=== PATIENT | female | born 1940 | race African-American/Black ===

== ENCOUNTER 2017-12-04 11:10 | Inpatient (IN) ==
[2017-12-04 13:00] LABS: Eosinophils # 0.1 10*3/uL (0.0-0.87); Eosinophils % 0.6 % (0.00-10.9); Hematocrit 32.1 VOL% (35.7-47.0); Hemoglobin 10.8 GM/DL (12.0-16.0); Immature Granulocytes % 0.6 %; Immature Granulocytes Absolute 0.07 #; Lymphocytes # 0.8 10*3/uL (1.4-4.0); Lymphocytes % 6.9 % (21.3-54.2); Mean Corpuscular HGB Conc 33.6 GM/DL (32-36); Mean Corpuscular Hemoglobin 29 PG (27-34); Mean Corpuscular Volume 84.7 FL (87-102); Monocytes # 0.6 10*3/uL (0.11-0.8); Monocytes % 5.9 % (1.7-12.7); Neutrophils # 9.4 10*3/uL (1.4-7.4); Platelet Count 301 T/CUMM (130-400); Red Blood Count 3.79 MC/CUMM (3.8-5.5); Red Cell Distribution Width 15.7 % (9.3-17.3); White Blood Count 10.9 T/CUMM (4-12)
[2017-12-04 13:18] LABS: Alanine Aminotransferase 17 U/L (13-56); Albumin 3.3 G/DL (3.4-5.0); Alkaline Phosphatase 57 U/L (45-117); Aspartate Amino Transferase 11 U/L (0-37); Bilirubin,Total < 0.39 MG/DL (0.2-1.0); Blood Urea Nitrogen 35 MG/DL (7-18); Calcium 9.1 MG/DL (8.5-10.1); Glucose 126 MG/DL (74-106); Osmolality,Calculated 284.7 MOS/KG (273-304); Potassium 4.6 MMOL/L (3.5-5.1); Sodium 138 MMOL/L (136-145); Total Protein 7.5 G/DL (6.4-8.3)
[2017-12-04 13:31] LABS: Apearance,Urine Slightly Hazy (Clear); Bacteria,Urine Many /HPF (Few); Bilirubin,Urine Negative (Negative); Blood, Urine Negative (Negative); Glucose,Urine (UA) Negative (Negative); Hyaline Casts,Urine 1 /LPF (0-3); Ketones,Urine Negative (Negative); Mucus,Urine Occasional /LPF (Occasional); Nitrite,Urine Positive (Negative); Protein,Urine Negative; Squamous Epithelial Cell,Urine Occasional /HPF (0-10); Urine Color Yellow (Yellow); Urine Specific Gravity 1.014 (1.001-1.035); Urine Urobilinogen < 2.0 EU/DL (0.2-1.0); WBC,Urine 3 /HPF (0-6)
[2017-12-04] MEDS ORDERED: ONDANSETRON 4 MG/2 ML VIAL IV PRN (15:01)
[2017-12-04] MEDS ORDERED: ACETAMINOPHEN 325 MG TABLET PO PRN (15:01)
[2017-12-04] MEDS ORDERED: GLUCAGON 1 MG VIAL IM PRN (15:34)
[2017-12-04] MEDS ORDERED: DEXTROSE 50% 25 GM/50 ML VIAL IV PRN (15:34)
[2017-12-04] MEDS ORDERED: SODIUM CHLORIDE 0.9% 1,000 ML IV SCH (16:00)
[2017-12-04] MEDS ORDERED: ALBUTEROL/IPRATROPIUM 3 ML NEB RESP TX PRN (16:01)
[2017-12-04] MEDS: cefTRIAXone 1,000 MG in SYRINGE 1 EACH IV SCH (20:37)
[2017-12-04] MEDS: INSULIN LISPRO 100 UNIT/ML SUBCUT SCH ×2 (20:37→21:29)
[2017-12-04] MEDS: hydrOXYzine HCL 25 MG TABLET PO SCH ×2 (20:38→21:31)
[2017-12-04] MEDS: METOPROLOL SUCCINATE XL 50 MG TABLET PO SCH (21:28)
[2017-12-04] MEDS: ALLOPURINOL 100 MG TABLET PO SCH (21:28)
[2017-12-04] MEDS: DABIGATRAN 150 MG CAPSULE PO SCH (21:28)
[2017-12-04] MEDS: SPIRONOLACTONE 25 MG TABLET PO SCH (21:28)
[2017-12-05 05:57] LABS: Basophils % 0.2 % (0.0-0.8); Eosinophils # 0.1 10*3/uL (0.0-0.87); Eosinophils % 1.3 % (0.00-10.9); Hemoglobin 9.9 GM/DL (12.0-16.0); Immature Granulocytes % 0.7 %; Immature Granulocytes Absolute 0.07 #; Lymphocytes # 2.1 10*3/uL (1.4-4.0); Lymphocytes % 20.4 % (21.3-54.2); Mean Corpuscular HGB Conc 31.9 GM/DL (32-36); Mean Corpuscular Hemoglobin 28 PG (27-34); Mean Corpuscular Volume 86.4 FL (87-102); Mean Platelet Volume 9.7 FL (9.6-12.0); Monocytes # 1.1 10*3/uL (0.11-0.8); Monocytes % 10.6 % (1.7-12.7); Neutrophils # 6.8 10*3/uL (1.4-7.4); Neutrophils % 66.8 % (38.7-73.9); Platelet Count 279 T/CUMM (130-400); Red Blood Count 3.59 MC/CUMM (3.8-5.5); Red Cell Distribution Width 15.8 % (9.3-17.3); White Blood Count 10.2 T/CUMM (4-12)
[2017-12-05 06:22] LABS: Calcium 8.7 MG/DL (8.5-10.1); Osmolality,Calculated 287.1 MOS/KG (273-304); Potassium 4.4 MMOL/L (3.5-5.1); Risk Ratio 2.03; VLDL CHOLESTEROL 12.6 MG/DL
[2017-12-05] MEDS: INSULIN LISPRO 100 UNIT/ML SUBCUT SCH ×4 (08:54→20:51)
[2017-12-05] MEDS: PANTOPRAZOLE 40 MG TABLET PO SCH (08:55)
[2017-12-05] MEDS: SPIRONOLACTONE 25 MG TABLET PO SCH ×2 (08:55→20:51)
[2017-12-05] MEDS: METOPROLOL SUCCINATE XL 100 MG TABLET PO SCH (08:55)
[2017-12-05] MEDS: DABIGATRAN 150 MG CAPSULE PO SCH (08:55)
[2017-12-05] MEDS: FUROSEMIDE 40 MG TABLET PO SCH (08:55)
[2017-12-05] MEDS: hydrOXYzine HCL 25 MG TABLET PO SCH ×4 (08:55→20:50)
[2017-12-05] MEDS: MULTIVITAMIN (CENTRUM) TABLET PO SCH (08:55)
[2017-12-05] MEDS: predniSONE 10 MG TABLET PO SCH (08:55)
[2017-12-05] MEDS: DILTIAZEM CD 240 MG CAPSULE PO SCH (08:55)
[2017-12-05] MEDS: ALLOPURINOL 100 MG TABLET PO SCH ×2 (08:55→20:50)
[2017-12-05] MEDS: CLINDAMYCIN INJ 300 MG in PREMIX 1 EACH IV SCH ×2 (14:54→20:51)
[2017-12-05] MEDS: cefTRIAXone 1,000 MG in SYRINGE 1 EACH IV SCH (16:36)
[2017-12-05] MEDS: METOPROLOL SUCCINATE XL 50 MG TABLET PO SCH (20:59)
[2017-12-06] MEDS: CLINDAMYCIN INJ 300 MG in PREMIX 1 EACH IV SCH ×4 (00:46→21:09)
[2017-12-06 06:24] LABS: Basophils % 0.2 % (0.0-0.8); Eosinophils # 0.1 10*3/uL (0.0-0.87); Eosinophils % 1.1 % (0.00-10.9); Hematocrit 29.6 VOL% (35.7-47.0); Hemoglobin 9.7 GM/DL (12.0-16.0); Immature Granulocytes Absolute 0.09 #; Lymphocytes % 11.4 % (21.3-54.2); Mean Corpuscular HGB Conc 32.8 GM/DL (32-36); Mean Corpuscular Hemoglobin 27 PG (27-34); Mean Corpuscular Volume 83.6 FL (87-102); Mean Platelet Volume 10.7 FL (9.6-12.0); Monocytes # 1.1 10*3/uL (0.11-0.8); NRBC # 0.02 10*3/uL; Neutrophils # 6.5 10*3/uL (1.4-7.4); Neutrophils % 74.3 % (38.7-73.9); Platelet Count 288 T/CUMM (130-400); Red Blood Count 3.54 MC/CUMM (3.8-5.5); Red Cell Distribution Width 15.6 % (9.3-17.3); White Blood Count 8.8 T/CUMM (4-12)
[2017-12-06 06:34] LABS: Calcium 8.6 MG/DL (8.5-10.1)
[2017-12-06 06:35] LABS: Osmolality,Calculated 287.1 MOS/KG (273-304); Potassium 4.4 MMOL/L (3.5-5.1)
[2017-12-06] MEDS: INSULIN LISPRO 100 UNIT/ML SUBCUT SCH ×4 (08:15→21:13)
[2017-12-06] MEDS: METOPROLOL SUCCINATE XL 100 MG TABLET PO SCH (09:02)
[2017-12-06] MEDS: predniSONE 10 MG TABLET PO SCH (09:02)
[2017-12-06] MEDS: FUROSEMIDE 40 MG TABLET PO SCH (09:02)
[2017-12-06] MEDS: SPIRONOLACTONE 25 MG TABLET PO SCH ×2 (09:02→21:10)
[2017-12-06] MEDS: PANTOPRAZOLE 40 MG TABLET PO SCH (09:02)
[2017-12-06] MEDS: MULTIVITAMIN (CENTRUM) TABLET PO SCH (09:02)
[2017-12-06] MEDS: DILTIAZEM CD 240 MG CAPSULE PO SCH (09:02)
[2017-12-06] MEDS: ALLOPURINOL 100 MG TABLET PO SCH ×2 (09:02→21:10)
[2017-12-06] MEDS: hydrOXYzine HCL 25 MG TABLET PO SCH ×4 (09:02→21:10)
[2017-12-06] MEDS: ALBUTEROL/IPRATROPIUM 3 ML NEB RESP TX SCH ×2 (13:45→19:03)
[2017-12-06] MEDS: cefTRIAXone 1,000 MG in SYRINGE 1 EACH IV SCH (17:21)
[2017-12-06] MEDS: METOPROLOL SUCCINATE XL 50 MG TABLET PO SCH (21:10)
[2017-12-07] MEDS: ALBUTEROL/IPRATROPIUM 3 ML NEB RESP TX SCH ×4 (00:18→19:33)
[2017-12-07] MEDS: CLINDAMYCIN INJ 300 MG in PREMIX 1 EACH IV SCH ×4 (02:31→18:38)
[2017-12-07] MEDS: INSULIN LISPRO 100 UNIT/ML SUBCUT SCH ×3 (08:16→16:58)
[2017-12-07] MEDS: ALLOPURINOL 100 MG TABLET PO SCH ×2 (09:34→21:00)
[2017-12-07] MEDS: METOPROLOL SUCCINATE XL 100 MG TABLET PO SCH (09:34)
[2017-12-07] MEDS: SPIRONOLACTONE 25 MG TABLET PO SCH ×2 (09:36→21:00)
[2017-12-07] MEDS: PANTOPRAZOLE 40 MG TABLET PO SCH (09:37)
[2017-12-07] MEDS: MULTIVITAMIN (CENTRUM) TABLET PO SCH (09:38)
[2017-12-07] MEDS: predniSONE 10 MG TABLET PO SCH (09:41)
[2017-12-07] MEDS: DILTIAZEM CD 240 MG CAPSULE PO SCH (10:28)
[2017-12-07] MEDS: hydrOXYzine HCL 25 MG TABLET PO SCH ×4 (10:29→21:00)
[2017-12-07] MEDS: FUROSEMIDE 40 MG TABLET PO SCH (10:29)
[2017-12-07] MEDS: cefTRIAXone 1,000 MG in SYRINGE 1 EACH IV SCH (16:56)
[2017-12-07 18:05] LABS: TB2 Ag Minus Result 0 IU/mL
[2017-12-07] MEDS: METOPROLOL SUCCINATE XL 50 MG TABLET PO SCH (21:00)
[2017-12-08] MEDS: INSULIN LISPRO 100 UNIT/ML SUBCUT SCH ×5 (00:23→20:08)
[2017-12-08] MEDS: CLINDAMYCIN INJ 300 MG in PREMIX 1 EACH IV SCH ×4 (00:29→19:51)
[2017-12-08] MEDS: ALBUTEROL/IPRATROPIUM 3 ML NEB RESP TX SCH ×4 (00:48→20:02)
[2017-12-08 05:25] LABS: Basophils % 0.2 % (0.0-0.8); Eosinophils # 0.2 10*3/uL (0.0-0.87); Eosinophils % 2.1 % (0.00-10.9); Hematocrit 27.9 VOL% (35.7-47.0); Immature Granulocytes % 1.2 %; Immature Granulocytes Absolute 0.11 #; Lymphocytes # 1.7 10*3/uL (1.4-4.0); Lymphocytes % 18.5 % (21.3-54.2); Mean Corpuscular HGB Conc 32.3 GM/DL (32-36); Mean Corpuscular Hemoglobin 28 PG (27-34); Mean Corpuscular Volume 86.1 FL (87-102); Mean Platelet Volume 10.5 FL (9.6-12.0); NRBC # 0.02 10*3/uL; Platelet Count 260 T/CUMM (130-400); Red Blood Count 3.24 MC/CUMM (3.8-5.5); Red Cell Distribution Width 15.6 % (9.3-17.3)
[2017-12-08 05:57] LABS: Albumin 2.4 G/DL (3.4-5.0); Bilirubin,Total 0.5 MG/DL (0.2-1.0); Calcium 8.5 MG/DL (8.5-10.1); Osmolality,Calculated 287.1 MOS/KG (273-304); Potassium 4.8 MMOL/L (3.5-5.1); Total Protein 6.1 G/DL (6.4-8.3)
[2017-12-08] MEDS: DILTIAZEM CD 240 MG CAPSULE PO SCH (09:32)
[2017-12-08] MEDS: predniSONE 10 MG TABLET PO SCH (09:32)
[2017-12-08] MEDS: METOPROLOL SUCCINATE XL 100 MG TABLET PO SCH (09:33)
[2017-12-08] MEDS: FUROSEMIDE 40 MG TABLET PO SCH (09:35)
[2017-12-08] MEDS: SPIRONOLACTONE 25 MG TABLET PO SCH ×2 (09:35→20:12)
[2017-12-08] MEDS: MULTIVITAMIN (CENTRUM) TABLET PO SCH (09:35)
[2017-12-08] MEDS: hydrOXYzine HCL 25 MG TABLET PO SCH ×4 (09:36→20:12)
[2017-12-08] MEDS: ALLOPURINOL 100 MG TABLET PO SCH ×2 (09:36→20:12)
[2017-12-08] MEDS: PANTOPRAZOLE 40 MG TABLET PO SCH (09:37)
[2017-12-08] MEDS: cefTRIAXone 1,000 MG in SYRINGE 1 EACH IV SCH (17:33)
[2017-12-08] MEDS: METOPROLOL SUCCINATE XL 50 MG TABLET PO SCH (20:12)
[2017-12-09] MEDS: ALBUTEROL/IPRATROPIUM 3 ML NEB RESP TX SCH ×3 (01:00→12:01)
[2017-12-09] MEDS: CLINDAMYCIN INJ 300 MG in PREMIX 1 EACH IV SCH ×4 (06:03→20:15)
[2017-12-09] MEDS: INSULIN LISPRO 100 UNIT/ML SUBCUT SCH ×4 (08:13→20:14)
[2017-12-09] MEDS: PANTOPRAZOLE 40 MG TABLET PO SCH (09:57)
[2017-12-09] MEDS: hydrOXYzine HCL 25 MG TABLET PO SCH ×4 (09:58→20:15)
[2017-12-09] MEDS: METOPROLOL SUCCINATE XL 100 MG TABLET PO SCH (09:58)
[2017-12-09] MEDS: DILTIAZEM CD 240 MG CAPSULE PO SCH (09:58)
[2017-12-09] MEDS: MULTIVITAMIN (CENTRUM) TABLET PO SCH (09:58)
[2017-12-09] MEDS: SPIRONOLACTONE 25 MG TABLET PO SCH ×2 (09:58→20:15)
[2017-12-09] MEDS: predniSONE 10 MG TABLET PO SCH (09:58)
[2017-12-09] MEDS: FUROSEMIDE 40 MG TABLET PO SCH (09:59)
[2017-12-09] MEDS: ALLOPURINOL 100 MG TABLET PO SCH ×2 (09:59→20:15)
[2017-12-09] MEDS: cefTRIAXone 1,000 MG in SYRINGE 1 EACH IV SCH (18:04)
[2017-12-09] MEDS: METOPROLOL SUCCINATE XL 50 MG TABLET PO SCH (20:15)
[2017-12-10] MEDS: CLINDAMYCIN INJ 300 MG in PREMIX 1 EACH IV SCH ×4 (00:23→18:43)
[2017-12-10] MEDS: ALBUTEROL/IPRATROPIUM 3 ML NEB RESP TX SCH ×5 (00:45→20:12)
[2017-12-10] MEDS: DILTIAZEM CD 240 MG CAPSULE PO SCH (10:13)
[2017-12-10] MEDS: SPIRONOLACTONE 25 MG TABLET PO SCH ×2 (10:14→20:28)
[2017-12-10] MEDS: MULTIVITAMIN (CENTRUM) TABLET PO SCH (10:15)
[2017-12-10] MEDS: predniSONE 10 MG TABLET PO SCH (10:15)
[2017-12-10] MEDS: FUROSEMIDE 40 MG TABLET PO SCH (10:15)
[2017-12-10] MEDS: hydrOXYzine HCL 25 MG TABLET PO SCH ×4 (10:15→20:28)
[2017-12-10] MEDS: ALLOPURINOL 100 MG TABLET PO SCH ×2 (10:15→20:28)
[2017-12-10] MEDS: PANTOPRAZOLE 40 MG TABLET PO SCH (10:16)
[2017-12-10] MEDS: INSULIN LISPRO 100 UNIT/ML SUBCUT SCH ×4 (10:16→20:21)
[2017-12-10] MEDS: METOPROLOL SUCCINATE XL 100 MG TABLET PO SCH (10:23)
[2017-12-10] MEDS: cefTRIAXone 1,000 MG in SYRINGE 1 EACH IV SCH (17:07)
[2017-12-10] MEDS: METOPROLOL SUCCINATE XL 50 MG TABLET PO SCH (20:28)
[2017-12-11] MEDS: CLINDAMYCIN INJ 300 MG in PREMIX 1 EACH IV SCH ×4 (00:07→18:55)
[2017-12-11] MEDS: ALBUTEROL/IPRATROPIUM 3 ML NEB RESP TX SCH ×4 (00:43→19:00)
[2017-12-11 06:01] LABS: Basophils % 0.3 % (0.0-0.8); Eosinophils # 0.2 10*3/uL (0.0-0.87); Eosinophils % 1.6 % (0.00-10.9); Hematocrit 30.7 VOL% (35.7-47.0); Hemoglobin 10.5 GM/DL (12.0-16.0); Immature Granulocytes % 1.4 %; Immature Granulocytes Absolute 0.15 #; Lymphocytes # 2.1 10*3/uL (1.4-4.0); Lymphocytes % 20.1 % (21.3-54.2); Mean Corpuscular HGB Conc 34.2 GM/DL (32-36); Mean Corpuscular Hemoglobin 28 PG (27-34); Mean Corpuscular Volume 82.3 FL (87-102); Mean Platelet Volume 10.6 FL (9.6-12.0); Monocytes # 1.1 10*3/uL (0.11-0.8); Monocytes % 10.2 % (1.7-12.7); NRBC # 0.04 10*3/uL; Neutrophils % 66.4 % (38.7-73.9); Platelet Count 286 T/CUMM (130-400); Red Blood Count 3.73 MC/CUMM (3.8-5.5); Red Cell Distribution Width 15.9 % (9.3-17.3); White Blood Count 10.6 T/CUMM (4-12)
[2017-12-11 06:15] LABS: PT Patient Result 10.7 SECS
[2017-12-11 06:16] LABS: Albumin 2.8 G/DL (3.4-5.0); Bilirubin,Total 0.5 MG/DL (0.2-1.0); Calcium 8.7 MG/DL (8.5-10.1); Osmolality,Calculated 282.5 MOS/KG (273-304); Potassium 4.6 MMOL/L (3.5-5.1); Total Protein 6.8 G/DL (6.4-8.3)
[2017-12-11] MEDS ORDERED: BENZONATATE 100 MG CAPSULE PO ONE (08:00)
[2017-12-11] MEDS ORDERED: diphenhydrAMINE 50 MG/1 ML VIAL IM ONE (08:00)
[2017-12-11] MEDS ORDERED: MEPERIDINE 50 MG/1 ML VIAL IM ONE (08:00)
[2017-12-11] MEDS ORDERED: LIDOCAINE 2% VISCOUS 100 ML BOTTLE SWISH/SPIT ONE (08:30)
[2017-12-11] MEDS ORDERED: LIDOCAINE 2% 20 ML VIAL RESP TX ONE (08:30)
[2017-12-11] MEDS ORDERED: LIDOCAINE 1% 20 ML VIAL MISC INJ ONE (08:30)
[2017-12-11] MEDS: INSULIN LISPRO 100 UNIT/ML SUBCUT SCH ×4 (08:32→21:45)
[2017-12-11] MEDS ORDERED: EPINEPHrine 1 MG/ML VIAL ET ONE (09:14)
[2017-12-11] MEDS ORDERED: EPINEPHrine 1 MG/ML VIAL ONE (09:54)
[2017-12-11] MEDS: hydrOXYzine HCL 25 MG TABLET PO SCH ×4 (10:29→20:31)
[2017-12-11] MEDS: PANTOPRAZOLE 40 MG TABLET PO SCH (10:30)
[2017-12-11] MEDS: METOPROLOL SUCCINATE XL 100 MG TABLET PO SCH (11:29)
[2017-12-11] MEDS: SPIRONOLACTONE 25 MG TABLET PO SCH ×2 (11:30→20:31)
[2017-12-11] MEDS: DILTIAZEM CD 240 MG CAPSULE PO SCH (11:30)
[2017-12-11] MEDS: predniSONE 10 MG TABLET PO SCH (11:30)
[2017-12-11] MEDS: FUROSEMIDE 40 MG TABLET PO SCH (11:30)
[2017-12-11] MEDS: ALLOPURINOL 100 MG TABLET PO SCH ×2 (11:30→20:32)
[2017-12-11] MEDS: MULTIVITAMIN (CENTRUM) TABLET PO SCH (11:30)
[2017-12-11] MEDS: cefTRIAXone 1,000 MG in SYRINGE 1 EACH IV SCH (16:40)
[2017-12-11] MEDS: METOPROLOL SUCCINATE XL 50 MG TABLET PO SCH (20:32)
[2017-12-12] MEDS: ALBUTEROL/IPRATROPIUM 3 ML NEB RESP TX SCH ×4 (00:30→20:03)
[2017-12-12] MEDS: CLINDAMYCIN INJ 300 MG in PREMIX 1 EACH IV SCH ×4 (01:18→18:05)
[2017-12-12] MEDS: INSULIN LISPRO 100 UNIT/ML SUBCUT SCH ×4 (07:32→21:47)
[2017-12-12] MEDS: PANTOPRAZOLE 40 MG TABLET PO SCH (09:12)
[2017-12-12] MEDS: predniSONE 10 MG TABLET PO SCH (09:12)
[2017-12-12] MEDS: DILTIAZEM CD 240 MG CAPSULE PO SCH (09:12)
[2017-12-12] MEDS: METOPROLOL SUCCINATE XL 100 MG TABLET PO SCH (09:12)
[2017-12-12] MEDS: ALLOPURINOL 100 MG TABLET PO SCH ×2 (09:12→21:46)
[2017-12-12] MEDS: MULTIVITAMIN (CENTRUM) TABLET PO SCH (09:12)
[2017-12-12] MEDS: FUROSEMIDE 40 MG TABLET PO SCH (09:12)
[2017-12-12] MEDS: SPIRONOLACTONE 25 MG TABLET PO SCH ×2 (09:13→21:46)
[2017-12-12] MEDS: hydrOXYzine HCL 25 MG TABLET PO SCH ×4 (09:13→21:46)
[2017-12-12] MEDS: cefTRIAXone 1,000 MG in SYRINGE 1 EACH IV SCH (15:55)
[2017-12-12 16:55] LABS: Apearance,Urine CLEAR (Clear); Bilirubin,Urine Negative (Negative); Blood, Urine Negative (Negative); Glucose,Urine (UA) Negative (Negative); Hyaline Casts,Urine 1 /LPF (0-3); Ketones,Urine Negative (Negative); Mucus,Urine Occasional /LPF (Occasional); Nitrite,Urine Negative (Negative); Protein,Urine Negative; Squamous Epithelial Cell,Urine Occasional /HPF (0-10); Urine Color Yellow (Yellow); Urine Specific Gravity 1.008 (1.001-1.035); Urine Urobilinogen < 2.0 EU/DL (0.2-1.0); WBC,Urine <1 /HPF (0-6)
[2017-12-12] MEDS: DABIGATRAN 150 MG CAPSULE PO SCH (21:45)
[2017-12-12] MEDS: METOPROLOL SUCCINATE XL 50 MG TABLET PO SCH (21:46)
[2017-12-13] MEDS: CLINDAMYCIN INJ 300 MG in PREMIX 1 EACH IV SCH ×2 (00:59→06:09)
[2017-12-13] MEDS: ALBUTEROL/IPRATROPIUM 3 ML NEB RESP TX SCH ×2 (01:31→07:15)
[2017-12-13] MEDS: INSULIN LISPRO 100 UNIT/ML SUBCUT SCH ×2 (08:20→11:30)
[2017-12-13] MEDS: PANTOPRAZOLE 40 MG TABLET PO SCH (09:14)
[2017-12-13] MEDS: ALLOPURINOL 100 MG TABLET PO SCH (09:14)
[2017-12-13] MEDS: FUROSEMIDE 40 MG TABLET PO SCH (09:14)
[2017-12-13] MEDS: METOPROLOL SUCCINATE XL 100 MG TABLET PO SCH (09:14)
[2017-12-13] MEDS: predniSONE 10 MG TABLET PO SCH (09:14)
[2017-12-13] MEDS: MULTIVITAMIN (CENTRUM) TABLET PO SCH (09:14)
[2017-12-13] MEDS: DILTIAZEM CD 240 MG CAPSULE PO SCH (09:15)
[2017-12-13] MEDS: SPIRONOLACTONE 25 MG TABLET PO SCH (09:16)
[2017-12-13] MEDS: hydrOXYzine HCL 25 MG TABLET PO SCH ×2 (09:16→12:53)
[2017-12-13] MEDS: DABIGATRAN 150 MG CAPSULE PO SCH (09:25)
[2017-12-13 12:34] VITALS: BP 119/81
== END 2017-12-13 14:50 | disposition home or self-care (01) | DRG 167 ==
LOC: N.ED 11:10 → SUATTDRO 15:00 → N.EDINP 15:00 → N.4E 18:31
PROVIDERS: ADMIT Internal Medicine; ATTEND Internal Medicine
PROC: BRONCHB (2017-12-11 09:05)

== ENCOUNTER 2019-01-26 11:45 | Inpatient (IN) ==
[2019-01-26] MEDS ORDERED: LACTATED RINGERS 500 ML IV ONE (12:59)
[2019-01-26] MEDS ORDERED: LACTATED RINGERS 1,000 ML IV SCH (13:00)
[2019-01-26 13:21] LABS: Basophils # 0.1 10*3/uL (0.0-0.2); Basophils % 0.2 % (0.0-0.8); Eosinophils % 0.1 % (0.00-10.9); Hematocrit 28.4 VOL% (35.7-47.0); Hemoglobin 9.4 GM/DL (12.0-16.0); Immature Granulocytes % 1.8 %; Immature Granulocytes Absolute 0.57 #; Lymphocytes # 0.7 10*3/uL (1.4-4.0); Lymphocytes % 2.2 % (21.3-54.2); Mean Corpuscular HGB Conc 33.1 GM/DL (32-36); Mean Platelet Volume 9.2 FL (9.6-12.0); NRBC # 0.11 10*3/uL; Neutrophils % 91.7 % (38.7-73.9); Platelet Count 275 T/CUMM (130-400); Red Blood Count 3.38 MC/CUMM (3.8-5.5); Red Cell Distribution Width 15.6 % (9.3-17.3); White Blood Count 31.4 T/CUMM (4-12)
[2019-01-26 13:32] LABS: Apearance,Urine Slightly Hazy (Clear); Bacteria,Urine Occasional /HPF (Few); Blood, Urine Negative (Negative); Glucose,Urine (UA) Negative (Negative); Hyaline Casts,Urine 5 /LPF (0-3); Ketones,Urine Negative (Negative); Nitrite,Urine Negative (Negative); Protein,Urine Negative; Squamous Epithelial Cell,Urine Occasional /HPF (0-10); Urine Color Yellow (Yellow); Urine Specific Gravity 1.012 (1.001-1.035); WBC,Urine 1 /HPF (0-6)
[2019-01-26 13:33] LABS: Bilirubin,Urine Small mg/dL (Negative)
[2019-01-26 13:41] LABS: Albumin 2.1 G/DL (3.4-5.0); Bilirubin,Total 0.8 MG/DL (0.2-1.0); Calcium 9.4 MG/DL (8.5-10.1)
[2019-01-26] MEDS ORDERED: SODIUM POLYSTYRENE SULFATE 15 GM/60 ML BOTTLE PO STA (13:51)
[2019-01-26] MEDS ORDERED: DEXTROSE 50% 25 GM/50 ML SYRINGE IV ONE (13:51)
[2019-01-26] MEDS ORDERED: CALCIUM GLUCONATE 2,000 MG in SODIUM CHLORIDE 0.9% 100 ML IV ONE (13:53)
[2019-01-26] MEDS ORDERED: INSULIN REGULAR 100 UNIT/ML ONE (13:53)
[2019-01-26] MEDS ORDERED: CALCIUM GLUCONATE 1,000 MG/10 ML VIAL IV ONE (13:55)
[2019-01-26] MEDS ORDERED: INSULIN REGULAR 100 UNIT/ML IV STA (13:59)
[2019-01-26] MEDS ORDERED: DEXTROSE 50% 25 GM/50 ML VIAL IV STA (13:59)
[2019-01-26 14:16] LABS: Lymphocytes 3 % (20-55); Segmented Neutrophils 92 % (50-85); Total Cells Counted 100
[2019-01-26 14:17] LABS: Microcytosis Slight
[2019-01-26 14:18] LABS: Elliptocytes Few
[2019-01-26 14:19] LABS: Acanthocytes Few
[2019-01-26 14:20] LABS: Platelet Estimate Adequate
[2019-01-26] MEDS ORDERED: predniSONE 5 MG TABLET PO SCH (15:10)
[2019-01-26] MEDS ORDERED: ONDANSETRON 4 MG/2 ML VIAL IV PRN (15:10)
[2019-01-26] MEDS ORDERED: ACETAMINOPHEN 325 MG TABLET PO PRN (15:10)
[2019-01-26] MEDS ORDERED: GLUCAGON 1 MG VIAL IM PRN (15:10)
[2019-01-26] MEDS: predniSONE 20 MG TABLET PO SCH (15:51)
[2019-01-26] MEDS: PANTOPRAZOLE 40 MG TABLET PO SCH (15:51)
[2019-01-26] MEDS: INSULIN REGULAR 100 UNIT/ML SUBCUT SCH ×2 (15:53→20:59)
[2019-01-26] MEDS: PIPERACILLIN/TAZOBACTAM 3,375 MG in SODIUM CHLORIDE 0.9% 100 ML IV SCH (16:42)
[2019-01-26] MEDS: SODIUM BICARB INJ 100 MEQ in DEXTROSE 5% 1,000 ML IV SCH (16:59)
[2019-01-26] MEDS ORDERED: prednisoLONE ACETATE 1% OPH SUSP 5 ML BOTTLE BOTH EYES PRN (17:00)
[2019-01-26 17:11] LABS: Apearance,Urine Slightly Hazy (Clear); Bacteria,Urine Occasional /HPF (Few); Bilirubin,Urine Negative (Negative); Blood, Urine Negative (Negative); Glucose,Urine (UA) Negative (Negative); Hyaline Casts,Urine 1 /LPF (0-3); Ketones,Urine Negative (Negative); Mucus,Urine Occasional /LPF (Occasional); Nitrite,Urine Negative (Negative); Protein,Urine Negative; RBC,Urine <1 /HPF (0-4); Squamous Epithelial Cell,Urine Occasional /HPF (0-10); Urine Color Yellow (Yellow); Urine Specific Gravity 1.011 (1.001-1.035); WBC,Urine 1 /HPF (0-6)
[2019-01-26 17:33] LABS: Protein/Creatinine Ratio,Urine 0.7 RATIO
[2019-01-26 18:21] LABS: Albumin 2.3 G/DL (3.4-5.0); Calcium 9.5 MG/DL (8.5-10.1)
[2019-01-26] MEDS ORDERED: INSULIN REGULAR 100 UNIT/ML IV ONE (18:39)
[2019-01-26] MEDS ORDERED: SODIUM POLYSTYRENE SULFATE 15 GM/60 ML BOTTLE PO ONE (18:43)
[2019-01-26] MEDS ORDERED: DEXTROSE 10% 250 ML IV SCH (19:00)
[2019-01-26] MEDS: ALBUTEROL/IPRATROPIUM 3 ML NEB RESP TX SCH (20:00)
[2019-01-26] MEDS ORDERED: METOPROLOL TARTRATE 25 MG TABLET PO SCH (21:00)
[2019-01-27] MEDS: ALBUTEROL/IPRATROPIUM 3 ML NEB RESP TX SCH ×4 (00:20→19:33)
[2019-01-27 01:55] LABS: Hematocrit 25.6 VOL% (35.7-47.0); Hemoglobin 8.8 GM/DL (12.0-16.0)
[2019-01-27] MEDS: PIPERACILLIN/TAZOBACTAM 3,375 MG in SODIUM CHLORIDE 0.9% 100 ML IV SCH ×2 (05:03→16:20)
[2019-01-27] MEDS ORDERED: METOPROLOL TARTRATE 25 MG TABLET PO ONE (06:05)
[2019-01-27] MEDS: SODIUM BICARB INJ 100 MEQ in DEXTROSE 5% 1,000 ML IV SCH ×3 (06:35→19:15)
[2019-01-27] MEDS: METOPROLOL TARTRATE 50 MG TABLET PO SCH ×3 (07:38→20:00)
[2019-01-27] MEDS: DILTIAZEM CD 240 MG CAPSULE PO SCH ×2 (07:38→08:40)
[2019-01-27 08:25] LABS: Basophils # 0.1 10*3/uL (0.0-0.2); Basophils % 0.2 % (0.0-0.8); Hematocrit 24.8 VOL% (35.7-47.0); Hemoglobin 8.3 GM/DL (12.0-16.0); Immature Granulocytes % 2.3 %; Immature Granulocytes Absolute 0.59 #; Lymphocytes # 0.2 10*3/uL (1.4-4.0); Lymphocytes % 0.7 % (21.3-54.2); Mean Corpuscular HGB Conc 33.5 GM/DL (32-36); Mean Corpuscular Volume 82.7 FL (87-102); Mean Platelet Volume 10.3 FL (9.6-12.0); Monocytes % 3.5 % (1.7-12.7); NRBC # 0.13 10*3/uL; Neutrophils % 93.3 % (38.7-73.9); Platelet Count 294 T/CUMM (130-400); Red Cell Distribution Width 15.3 % (9.3-17.3); White Blood Count 25.7 T/CUMM (4-12)
[2019-01-27] MEDS ORDERED: DILTIAZEM CD 240 MG CAPSULE PO SCH (09:00)
[2019-01-27 09:05] LABS: Albumin 1.8 G/DL (3.4-5.0); Calcium 8.7 MG/DL (8.5-10.1); Osmolality,Calculated 304.5 MOS/KG (273-304)
[2019-01-27 09:19] LABS: Acanthocytes Few; Band Neutrophils 8 % (0-10); Eosinophils 1 % (0-10); Platelet Estimate Normal; Poikilocytosis 1+; Segmented Neutrophils 90 % (50-85); Total Cells Counted 100
[2019-01-27] MEDS: predniSONE 20 MG TABLET PO SCH (09:19)
[2019-01-27 09:20] LABS: Tear Drop Cells Few
[2019-01-27] MEDS: PANTOPRAZOLE 40 MG TABLET PO SCH (09:20)
[2019-01-27] MEDS: INSULIN REGULAR 100 UNIT/ML SUBCUT SCH ×4 (09:46→20:45)
[2019-01-27] MEDS: INSULIN GLARGINE 100 UNIT/ML SUBCUT SCH (14:00)
[2019-01-27 19:38] LABS: Hematocrit 28.1 VOL% (35.7-47.0); Hemoglobin 9.2 GM/DL (12.0-16.0)
[2019-01-27] MEDS ORDERED: DILTIAZEM 25 MG/5 ML VIAL IV ONE (20:54)
[2019-01-28] MEDS: ALBUTEROL/IPRATROPIUM 3 ML NEB RESP TX SCH ×4 (00:46→20:08)
[2019-01-28] MEDS: dilTIAZem Drip 125 MG/125 ML PREMIX IV SCH ×2 (03:10→14:06)
[2019-01-28] MEDS ORDERED: LIDOCAINE 2% 20 ML VIAL ONE (05:16)
[2019-01-28] MEDS ORDERED: LIDOCAINE 1% 20 ML VIAL INFILTRAT ONE (05:27)
[2019-01-28] MEDS: PIPERACILLIN/TAZOBACTAM 3,375 MG in SODIUM CHLORIDE 0.9% 100 ML IV SCH ×2 (06:00→16:13)
[2019-01-28] MEDS: SODIUM BICARB INJ 100 MEQ in DEXTROSE 5% 1,000 ML IV SCH ×2 (06:15→15:01)
[2019-01-28 06:46] LABS: Basophils % 0.2 % (0.0-0.8); Hemoglobin 8.2 GM/DL (12.0-16.0); Immature Granulocytes % 1.7 %; Immature Granulocytes Absolute 0.32 #; Lymphocytes # 0.3 10*3/uL (1.4-4.0); Lymphocytes % 1.5 % (21.3-54.2); Mean Corpuscular HGB Conc 34.2 GM/DL (32-36); Mean Corpuscular Volume 81.1 FL (87-102); Monocytes % 5.2 % (1.7-12.7); NRBC # 0.14 10*3/uL; Neutrophils % 91.4 % (38.7-73.9); Platelet Count 286 T/CUMM (130-400); Red Blood Count 2.96 MC/CUMM (3.8-5.5); White Blood Count 19.4 T/CUMM (4-12)
[2019-01-28 07:04] LABS: Band Neutrophils 1 % (0-10); Lymphocytes 1 % (20-55); Nucleated Red Blood Cells 2 (0-5); Platelet Estimate Adequate; Segmented Neutrophils 91 % (50-85); Total Cells Counted 100
[2019-01-28 07:05] LABS: Hypochromasia 1+; Microcytosis Slight; Ovalocytes Slight
[2019-01-28 07:13] LABS: Albumin 1.6 G/DL (3.4-5.0); Calcium 8.6 MG/DL (8.5-10.1); Osmolality,Calculated 291.5 MOS/KG (273-304)
[2019-01-28] MEDS: INSULIN REGULAR 100 UNIT/ML SUBCUT SCH ×4 (08:02→20:31)
[2019-01-28] MEDS ORDERED: PROPOFOL 200 MG/20 ML VIAL IV ONE (09:00)
[2019-01-28] MEDS ORDERED: ETOMIDATE 20 MG/10 ML VIAL IV ONE (09:00)
[2019-01-28] MEDS ORDERED: LIDOCAINE 2% 5 ML VIAL ONE (09:00)
[2019-01-28] MEDS: LACTATED RINGERS 1,000 ML IV SCH (10:11)
[2019-01-28] MEDS: INSULIN GLARGINE 100 UNIT/ML SUBCUT SCH (10:25)
[2019-01-28] MEDS ORDERED: MAGNESIUM SULF RIDER 2 GM in PREMIX 1 EACH IV ONE (11:35)
[2019-01-28] MEDS: PANTOPRAZOLE 40 MG TABLET PO SCH (12:16)
[2019-01-28] MEDS: POTASSIUM CHLORIDE 20 MEQ/15 ML UDCUP PER TUBE SCH ×4 (12:16→23:37)
[2019-01-28] MEDS: predniSONE 20 MG TABLET PO SCH (12:16)
[2019-01-28] MEDS: METOPROLOL TARTRATE 50 MG TABLET PO SCH ×2 (12:16→20:31)
[2019-01-29] MEDS: ALBUTEROL/IPRATROPIUM 3 ML NEB RESP TX SCH ×4 (02:06→19:02)
[2019-01-29] MEDS: PIPERACILLIN/TAZOBACTAM 3,375 MG in SODIUM CHLORIDE 0.9% 100 ML IV SCH ×2 (03:21→16:00)
[2019-01-29] MEDS: dilTIAZem Drip 125 MG/125 ML PREMIX IV SCH ×2 (04:59→16:42)
[2019-01-29 06:02] LABS: Basophils % 0.2 % (0.0-0.8); Eosinophils # 0.1 10*3/uL (0.0-0.87); Eosinophils % 0.5 % (0.00-10.9); Hematocrit 25.1 VOL% (35.7-47.0); Immature Granulocytes % 5.2 %; Immature Granulocytes Absolute 0.53 #; Lymphocytes % 9.6 % (21.3-54.2); Mean Corpuscular HGB Conc 31.9 GM/DL (32-36); Mean Corpuscular Volume 85.1 FL (87-102); Mean Platelet Volume 10.4 FL (9.6-12.0); Monocytes % 5.4 % (1.7-12.7); NRBC # 0.07 10*3/uL; Neutrophils % 79.1 % (38.7-73.9); Platelet Count 303 T/CUMM (130-400); Red Blood Count 2.95 MC/CUMM (3.8-5.5); Red Cell Distribution Width 15.3 % (9.3-17.3); White Blood Count 10.2 T/CUMM (4-12)
[2019-01-29 06:12] LABS: Albumin 1.5 G/DL (3.4-5.0); Calcium 8.5 MG/DL (8.5-10.1); Osmolality,Calculated 288.3 MOS/KG (273-304)
[2019-01-29 06:33] LABS: Band Neutrophils 2 % (0-10); Hypochromasia 1+; Lymphocytes 10 % (20-55); Metamyelocytes 1 %; Microcytosis 1+; Nucleated Red Blood Cells 3 (0-5); Ovalocytes Few; Segmented Neutrophils 82 % (50-85); Target Cells Slight; Total Cells Counted 100
[2019-01-29 06:34] LABS: Anisocytosis 1+; Platelet Estimate Normal
[2019-01-29] MEDS: INSULIN REGULAR 100 UNIT/ML SUBCUT SCH ×4 (08:06→21:01)
[2019-01-29] MEDS: INSULIN GLARGINE 100 UNIT/ML SUBCUT SCH (08:43)
[2019-01-29] MEDS: METOPROLOL TARTRATE 50 MG TABLET PO SCH ×2 (08:43→21:02)
[2019-01-29] MEDS: predniSONE 20 MG TABLET PO SCH (08:43)
[2019-01-29] MEDS: LACTATED RINGERS 1,000 ML IV SCH (08:44)
[2019-01-29] MEDS: PANTOPRAZOLE 40 MG TABLET PO SCH (08:44)
[2019-01-29] MEDS ORDERED: DIGOXIN 0.5 MG/2 ML AMP IV ONE ×2 (08:54→16:43)
[2019-01-29 15:11] LABS: Procalcitonin, S 4.6 ng/mL (<=0.15)
[2019-01-29] MEDS ORDERED: METOPROLOL TARTRATE 5 MG/5 ML VIAL IV ONE (22:10)
[2019-01-30] MEDS: ALBUTEROL/IPRATROPIUM 3 ML NEB RESP TX SCH ×4 (00:55→19:33)
[2019-01-30] MEDS ORDERED: METOPROLOL TARTRATE 5 MG/5 ML VIAL IV ONE (02:39)
[2019-01-30] MEDS: dilTIAZem Drip 125 MG/125 ML PREMIX IV SCH ×2 (02:57→15:22)
[2019-01-30] MEDS: PIPERACILLIN/TAZOBACTAM 3,375 MG in SODIUM CHLORIDE 0.9% 100 ML IV SCH ×2 (04:35→15:22)
[2019-01-30 06:07] LABS: Albumin 1.4 G/DL (3.4-5.0); Osmolality,Calculated 284.3 MOS/KG (273-304)
[2019-01-30] MEDS: INSULIN REGULAR 100 UNIT/ML SUBCUT SCH ×4 (07:45→20:33)
[2019-01-30] MEDS: METOPROLOL TARTRATE 50 MG TABLET PO SCH ×2 (08:41→20:33)
[2019-01-30] MEDS: LACTATED RINGERS 1,000 ML IV SCH (08:41)
[2019-01-30] MEDS: INSULIN GLARGINE 100 UNIT/ML SUBCUT SCH (08:41)
[2019-01-30] MEDS: predniSONE 20 MG TABLET PO SCH (08:42)
[2019-01-30] MEDS: PANTOPRAZOLE 40 MG TABLET PO SCH (08:42)
[2019-01-30] MEDS ORDERED: DILTIAZEM 30 MG TABLET PO SCH (12:00)
[2019-01-30] MEDS ORDERED: DIGOXIN 0.5 MG/2 ML AMP IV ONE (12:08)
[2019-01-30 12:43] LABS: Basophils % 0.2 % (0.0-0.8); Eosinophils % 0.2 % (0.00-10.9); Hematocrit 27.1 VOL% (35.7-47.0); Hemoglobin 8.4 GM/DL (12.0-16.0); Immature Granulocytes % 6.1 %; Immature Granulocytes Absolute 0.77 #; Lymphocytes # 0.4 10*3/uL (1.4-4.0); Lymphocytes % 2.9 % (21.3-54.2); Mean Corpuscular Volume 87.4 FL (87-102); Mean Platelet Volume 9.7 FL (9.6-12.0); Monocytes % 3.7 % (1.7-12.7); NRBC # 0.05 10*3/uL; Neutrophils % 86.9 % (38.7-73.9); Platelet Count 341 T/CUMM (130-400); Red Cell Distribution Width 15.1 % (9.3-17.3); White Blood Count 12.6 T/CUMM (4-12)
[2019-01-30 13:05] LABS: Anisocytosis 2+; Band Neutrophils 8 % (0-10); Lymphocytes 6 % (20-55); Nucleated Red Blood Cells 3 (0-5); Platelet Estimate Normal; Segmented Neutrophils 83 % (50-85); Total Cells Counted 100
[2019-01-30 13:06] LABS: Giant Platelets Few; Ovalocytes Few; Poikilocytosis Slight; Polychromasia Slight
[2019-01-30] MEDS ORDERED: POTASSIUM CHLORIDE 10 MEQ TABLET PO ONE (14:23)
[2019-01-30] MEDS: DILTIAZEM 30 MG TABLET PO SCH ×2 (15:21→20:33)
[2019-01-31] MEDS: ALBUTEROL/IPRATROPIUM 3 ML NEB RESP TX SCH ×4 (03:06→20:37)
[2019-01-31] MEDS: PIPERACILLIN/TAZOBACTAM 3,375 MG in SODIUM CHLORIDE 0.9% 100 ML IV SCH ×2 (04:19→16:42)
[2019-01-31] MEDS: dilTIAZem Drip 125 MG/125 ML PREMIX IV SCH (04:46)
[2019-01-31 05:08] LABS: Basophils % 0.1 % (0.0-0.8); Eosinophils # 0.1 10*3/uL (0.0-0.87); Eosinophils % 0.4 % (0.00-10.9); Hematocrit 23.5 VOL% (35.7-47.0); Hemoglobin 7.3 GM/DL (12.0-16.0); Immature Granulocytes % 6.9 %; Immature Granulocytes Absolute 0.92 #; Lymphocytes % 7.7 % (21.3-54.2); Mean Corpuscular HGB Conc 31.1 GM/DL (32-36); Mean Corpuscular Volume 87.4 FL (87-102); Mean Platelet Volume 10.2 FL (9.6-12.0); Monocytes % 5.7 % (1.7-12.7); NRBC # 0.06 10*3/uL; Neutrophils % 79.2 % (38.7-73.9); Platelet Count 312 T/CUMM (130-400); Red Blood Count 2.69 MC/CUMM (3.8-5.5); Red Cell Distribution Width 15.2 % (9.3-17.3); White Blood Count 13.4 T/CUMM (4-12)
[2019-01-31 05:32] LABS: Band Neutrophils 1 % (0-10); Lymphocytes 11 % (20-55); Metamyelocytes 1 %; Segmented Neutrophils 84 % (50-85); Total Cells Counted 100
[2019-01-31 05:33] LABS: Ovalocytes Slight; Target Cells Slight
[2019-01-31 05:34] LABS: Microcytosis Slight; Platelet Estimate Normal; Schistocytes Slight
[2019-01-31 05:53] LABS: Osmolality,Calculated 287.3 MOS/KG (273-304)
[2019-01-31] MEDS: DILTIAZEM 30 MG TABLET PO SCH ×3 (10:07→21:27)
[2019-01-31] MEDS: predniSONE 20 MG TABLET PO SCH (10:08)
[2019-01-31] MEDS: METOPROLOL TARTRATE 50 MG TABLET PO SCH ×2 (10:09→21:27)
[2019-01-31] MEDS: INSULIN GLARGINE 100 UNIT/ML SUBCUT SCH (10:09)
[2019-01-31] MEDS: PANTOPRAZOLE 40 MG TABLET PO SCH (10:09)
[2019-01-31] MEDS: INSULIN REGULAR 100 UNIT/ML SUBCUT SCH ×4 (10:09→20:58)
[2019-01-31] MEDS: LACTATED RINGERS 1,000 ML IV SCH (10:35)
[2019-01-31] MEDS ORDERED: SODIUM CHLORIDE 0.9% 1,000 ML IV PRN (11:52)
[2019-01-31] MEDS ORDERED: DIGOXIN 0.125 MG TABLET PO SCH (13:00)
[2019-02-01] MEDS: ALBUTEROL/IPRATROPIUM 3 ML NEB RESP TX SCH ×4 (00:50→19:59)
[2019-02-01] MEDS: dilTIAZem Drip 125 MG/125 ML PREMIX IV SCH ×2 (01:05→03:57)
[2019-02-01] MEDS: PIPERACILLIN/TAZOBACTAM 3,375 MG in SODIUM CHLORIDE 0.9% 100 ML IV SCH ×2 (04:50→16:48)
[2019-02-01 05:56] LABS: Basophils % 0.1 % (0.0-0.8); Eosinophils % 0.3 % (0.00-10.9); Hematocrit 22.9 VOL% (35.7-47.0); Hemoglobin 7.2 GM/DL (12.0-16.0); Immature Granulocytes % 5.9 %; Immature Granulocytes Absolute 0.87 #; Lymphocytes # 1.1 10*3/uL (1.4-4.0); Lymphocytes % 7.7 % (21.3-54.2); Mean Corpuscular HGB Conc 31.4 GM/DL (32-36); Mean Corpuscular Volume 87.4 FL (87-102); Monocytes % 5.7 % (1.7-12.7); NRBC # 0.03 10*3/uL; Neutrophils % 80.3 % (38.7-73.9); Platelet Count 328 T/CUMM (130-400); Red Blood Count 2.62 MC/CUMM (3.8-5.5); Red Cell Distribution Width 15.3 % (9.3-17.3); White Blood Count 14.9 T/CUMM (4-12)
[2019-02-01 06:27] LABS: Calcium 8.2 MG/DL (8.5-10.1); Osmolality,Calculated 283.3 MOS/KG (273-304)
[2019-02-01 06:30] LABS: Band Neutrophils 2 % (0-10); Hypochromasia 1+; Lymphocytes 6 % (20-55); Platelet Estimate Adequate; Segmented Neutrophils 86 % (50-85); Total Cells Counted 100
[2019-02-01 06:31] LABS: Microcytosis Slight; Ovalocytes Slight
[2019-02-01] MEDS: DILTIAZEM 30 MG TABLET PO SCH ×3 (08:20→20:52)
[2019-02-01] MEDS: PANTOPRAZOLE 40 MG TABLET PO SCH (08:21)
[2019-02-01] MEDS: predniSONE 20 MG TABLET PO SCH (08:21)
[2019-02-01] MEDS: METOPROLOL TARTRATE 50 MG TABLET PO SCH ×2 (08:21→20:52)
[2019-02-01] MEDS: INSULIN REGULAR 100 UNIT/ML SUBCUT SCH ×4 (08:22→20:06)
[2019-02-01] MEDS: INSULIN GLARGINE 100 UNIT/ML SUBCUT SCH (08:22)
[2019-02-01] MEDS ORDERED: DIGOXIN 0.125 MG TABLET PO SCH (13:00)
[2019-02-01] MEDS: LACTATED RINGERS 1,000 ML IV SCH (18:42)
[2019-02-02] MEDS: ALBUTEROL/IPRATROPIUM 3 ML NEB RESP TX SCH ×4 (01:01→18:57)
[2019-02-02 05:39] LABS: Basophils % 0.2 % (0.0-0.8); Eosinophils % 0.3 % (0.00-10.9); Immature Granulocytes % 6.4 %; Immature Granulocytes Absolute 0.85 #; Lymphocytes # 1.2 10*3/uL (1.4-4.0); Mean Corpuscular HGB Conc 31.8 GM/DL (32-36); Mean Platelet Volume 10.1 FL (9.6-12.0); Monocytes % 6.9 % (1.7-12.7); NRBC # 0.04 10*3/uL; Neutrophils % 77.2 % (38.7-73.9); Platelet Count 346 T/CUMM (130-400); Red Cell Distribution Width 15.3 % (9.3-17.3); White Blood Count 13.3 T/CUMM (4-12)
[2019-02-02] MEDS: PIPERACILLIN/TAZOBACTAM 3,375 MG in SODIUM CHLORIDE 0.9% 100 ML IV SCH ×2 (05:50→17:23)
[2019-02-02] MEDS: dilTIAZem Drip 125 MG/125 ML PREMIX IV SCH (06:08)
[2019-02-02 06:38] LABS: Anisocytosis 1+; Hypochromasia 1+; Lymphocytes 7 % (20-55); Microcytosis 1+; Platelet Estimate Adequate; Segmented Neutrophils 90 % (50-85); Total Cells Counted 100
[2019-02-02 06:42] LABS: Calcium 8.3 MG/DL (8.5-10.1)
[2019-02-02] MEDS: INSULIN REGULAR 100 UNIT/ML SUBCUT SCH ×4 (08:14→20:03)
[2019-02-02] MEDS: predniSONE 20 MG TABLET PO SCH (08:15)
[2019-02-02] MEDS: METOPROLOL TARTRATE 50 MG TABLET PO SCH ×2 (08:15→20:02)
[2019-02-02] MEDS: DILTIAZEM 30 MG TABLET PO SCH ×3 (08:15→20:02)
[2019-02-02] MEDS: PANTOPRAZOLE 40 MG TABLET PO SCH (08:15)
[2019-02-02] MEDS: LACTATED RINGERS 1,000 ML IV SCH (08:16)
[2019-02-02] MEDS ORDERED: SODIUM CHLORIDE 0.9% 1,000 ML IV PRN (10:42)
[2019-02-02] MEDS: INSULIN GLARGINE 100 UNIT/ML SUBCUT SCH (13:40)
[2019-02-03] MEDS: ALBUTEROL/IPRATROPIUM 3 ML NEB RESP TX SCH ×4 (00:28→19:26)
[2019-02-03] MEDS: PIPERACILLIN/TAZOBACTAM 3,375 MG in SODIUM CHLORIDE 0.9% 100 ML IV SCH ×2 (04:30→15:26)
[2019-02-03 05:15] LABS: Basophils % 0.3 % (0.0-0.8); Eosinophils # 0.1 10*3/uL (0.0-0.87); Eosinophils % 0.4 % (0.00-10.9); Hematocrit 30.8 VOL% (35.7-47.0); Immature Granulocytes % 5.7 %; Immature Granulocytes Absolute 0.74 #; Lymphocytes # 1.2 10*3/uL (1.4-4.0); Lymphocytes % 9.4 % (21.3-54.2); Mean Corpuscular HGB Conc 31.5 GM/DL (32-36); Mean Corpuscular Volume 85.8 FL (87-102); Mean Platelet Volume 9.2 FL (9.6-12.0); Monocytes % 7.9 % (1.7-12.7); NRBC # 0.04 10*3/uL; Neutrophils % 76.3 % (38.7-73.9); Platelet Count 323 T/CUMM (130-400); Red Cell Distribution Width 15.1 % (9.3-17.3); White Blood Count 12.9 T/CUMM (4-12)
[2019-02-03 05:22] LABS: Hemoglobin 9.7 GM/DL (12.0-16.0); Red Blood Count 3.59 MC/CUMM (3.8-5.5)
[2019-02-03] MEDS: dilTIAZem Drip 125 MG/125 ML PREMIX IV SCH (05:25)
[2019-02-03 05:42] LABS: Calcium 8.3 MG/DL (8.5-10.1)
[2019-02-03 05:49] LABS: Band Neutrophils 2 % (0-10); Lymphocytes 15 % (20-55); Segmented Neutrophils 79 % (50-85); Total Cells Counted 100
[2019-02-03 05:50] LABS: Hypochromasia 2+; Ovalocytes Few; Platelet Estimate Normal
[2019-02-03] MEDS: INSULIN REGULAR 100 UNIT/ML SUBCUT SCH ×4 (09:53→22:48)
[2019-02-03] MEDS: METOPROLOL TARTRATE 50 MG TABLET PO SCH ×2 (09:55→21:14)
[2019-02-03] MEDS: INSULIN GLARGINE 100 UNIT/ML SUBCUT SCH (09:56)
[2019-02-03] MEDS: PANTOPRAZOLE 40 MG TABLET PO SCH (09:56)
[2019-02-03] MEDS: predniSONE 20 MG TABLET PO SCH (09:56)
[2019-02-03] MEDS: DILTIAZEM 30 MG TABLET PO SCH ×2 (09:56→15:25)
[2019-02-03] MEDS: LACTATED RINGERS 1,000 ML IV SCH (10:02)
[2019-02-03] MEDS: DILTIAZEM 60 MG TABLET PO SCH (21:14)
[2019-02-04] MEDS: ALBUTEROL/IPRATROPIUM 3 ML NEB RESP TX SCH ×4 (00:50→20:17)
[2019-02-04] MEDS: PIPERACILLIN/TAZOBACTAM 3,375 MG in SODIUM CHLORIDE 0.9% 100 ML IV SCH ×2 (04:10→18:24)
[2019-02-04 05:16] LABS: Calcium 8.3 MG/DL (8.5-10.1)
[2019-02-04] MEDS: INSULIN REGULAR 100 UNIT/ML SUBCUT SCH ×4 (09:24→22:13)
[2019-02-04] MEDS ORDERED: METOPROLOL TARTRATE 5 MG/5 ML VIAL IV ONE (09:24)
[2019-02-04] MEDS: INSULIN GLARGINE 100 UNIT/ML SUBCUT SCH (09:25)
[2019-02-04] MEDS: PANTOPRAZOLE 40 MG TABLET PO SCH (09:25)
[2019-02-04] MEDS: predniSONE 20 MG TABLET PO SCH (09:25)
[2019-02-04] MEDS: METOPROLOL TARTRATE 50 MG TABLET PO SCH ×2 (09:25→22:14)
[2019-02-04] MEDS: DILTIAZEM 60 MG TABLET PO SCH ×3 (14:09→18:25)
[2019-02-04] MEDS: LACTATED RINGERS 1,000 ML IV SCH (18:17)
[2019-02-04] MEDS: DILTIAZEM CD 240 MG CAPSULE PO SCH (22:13)
[2019-02-05] MEDS: ALBUTEROL/IPRATROPIUM 3 ML NEB RESP TX SCH ×4 (01:47→19:30)
[2019-02-05] MEDS: PIPERACILLIN/TAZOBACTAM 3,375 MG in SODIUM CHLORIDE 0.9% 100 ML IV SCH ×2 (04:19→16:43)
[2019-02-05] MEDS: predniSONE 20 MG TABLET PO SCH (09:44)
[2019-02-05] MEDS: INSULIN GLARGINE 100 UNIT/ML SUBCUT SCH (09:44)
[2019-02-05] MEDS: METOPROLOL TARTRATE 50 MG TABLET PO SCH ×2 (09:44→21:37)
[2019-02-05] MEDS: PANTOPRAZOLE 40 MG TABLET PO SCH (09:44)
[2019-02-05] MEDS: INSULIN REGULAR 100 UNIT/ML SUBCUT SCH ×4 (09:45→21:39)
[2019-02-05 12:33] LABS: Basophils % 0.2 % (0.0-0.8); Eosinophils % 0.3 % (0.00-10.9); Hematocrit 32.1 VOL% (35.7-47.0); Hemoglobin 10.1 GM/DL (12.0-16.0); Immature Granulocytes % 1.8 %; Immature Granulocytes Absolute 0.22 #; Lymphocytes # 0.6 10*3/uL (1.4-4.0); Lymphocytes % 4.6 % (21.3-54.2); Mean Corpuscular HGB Conc 31.5 GM/DL (32-36); Mean Corpuscular Volume 87.2 FL (87-102); Mean Platelet Volume 9.8 FL (9.6-12.0); Monocytes % 5.6 % (1.7-12.7); Neutrophils % 87.5 % (38.7-73.9); Platelet Count 368 T/CUMM (130-400); Red Blood Count 3.68 MC/CUMM (3.8-5.5); Red Cell Distribution Width 15.6 % (9.3-17.3)
[2019-02-05 13:06] LABS: Calcium 8.3 MG/DL (8.5-10.1); Lymphocytes 2 % (20-55); Nucleated Red Blood Cells 1 (0-5); Segmented Neutrophils 94 % (50-85); Total Cells Counted 100
[2019-02-05 13:07] LABS: Anisocytosis 1+; Macrocytosis Slight; Microcytosis 1+; Platelet Estimate Normal; Poikilocytosis 1+; Polychromasia Slight; Target Cells Few
[2019-02-05 13:08] LABS: Elliptocytes Few
[2019-02-05] MEDS: LACTATED RINGERS 1,000 ML IV SCH ×2 (16:44→19:26)
[2019-02-05] MEDS: DILTIAZEM CD 240 MG CAPSULE PO SCH (21:37)
[2019-02-06] MEDS: ALBUTEROL/IPRATROPIUM 3 ML NEB RESP TX SCH ×4 (00:39→20:23)
[2019-02-06] MEDS: HydrOXYzine PAMOATE 25 MG CAPSULE PO PRN ×2 (03:56→21:07)
[2019-02-06] MEDS: PIPERACILLIN/TAZOBACTAM 3,375 MG in SODIUM CHLORIDE 0.9% 100 ML IV SCH ×2 (04:00→18:36)
[2019-02-06] MEDS: INSULIN REGULAR 100 UNIT/ML SUBCUT SCH ×3 (07:29→17:59)
[2019-02-06] MEDS: METOPROLOL TARTRATE 50 MG TABLET PO SCH ×2 (09:28→20:58)
[2019-02-06] MEDS: PANTOPRAZOLE 40 MG TABLET PO SCH (09:28)
[2019-02-06] MEDS: predniSONE 20 MG TABLET PO SCH (09:28)
[2019-02-06] MEDS: INSULIN GLARGINE 100 UNIT/ML SUBCUT SCH (09:29)
[2019-02-06] MEDS: LACTATED RINGERS 1,000 ML IV SCH (10:55)
[2019-02-06] MEDS: DILTIAZEM CD 240 MG CAPSULE PO SCH (20:58)
[2019-02-07] MEDS: ALBUTEROL/IPRATROPIUM 3 ML NEB RESP TX SCH ×4 (00:54→19:28)
[2019-02-07] MEDS: INSULIN REGULAR 100 UNIT/ML SUBCUT SCH ×5 (01:04→22:07)
[2019-02-07] MEDS: PIPERACILLIN/TAZOBACTAM 3,375 MG in SODIUM CHLORIDE 0.9% 100 ML IV SCH ×2 (03:00→15:33)
[2019-02-07 05:58] LABS: Basophils % 0.2 % (0.0-0.8); Eosinophils % 0.4 % (0.00-10.9); Hematocrit 30.5 VOL% (35.7-47.0); Hemoglobin 9.4 GM/DL (12.0-16.0); Lymphocytes % 9.8 % (21.3-54.2); Mean Corpuscular HGB Conc 30.8 GM/DL (32-36); Mean Corpuscular Volume 87.1 FL (87-102); Mean Platelet Volume 9.7 FL (9.6-12.0); Monocytes % 8.5 % (1.7-12.7); Neutrophils % 80.1 % (38.7-73.9); Platelet Count 330 T/CUMM (130-400); Red Cell Distribution Width 15.8 % (9.3-17.3); White Blood Count 9.9 T/CUMM (4-12)
[2019-02-07 06:22] LABS: Calcium 8.2 MG/DL (8.5-10.1); Osmolality,Calculated 283.8 MOS/KG (273-304)
[2019-02-07] MEDS ORDERED: MAGNESIUM SULF RIDER 4 GM in PREMIX 1 EACH IV PRN (07:55)
[2019-02-07] MEDS ORDERED: MAGNESIUM SULF RIDER 2 GM in PREMIX 1 EACH IV PRN (07:55)
[2019-02-07] MEDS: METOPROLOL TARTRATE 50 MG TABLET PO SCH ×2 (09:19→22:07)
[2019-02-07] MEDS: predniSONE 20 MG TABLET PO SCH (09:19)
[2019-02-07] MEDS: PANTOPRAZOLE 40 MG TABLET PO SCH (09:19)
[2019-02-07] MEDS: INSULIN GLARGINE 100 UNIT/ML SUBCUT SCH (09:32)
[2019-02-07] MEDS: HydrOXYzine PAMOATE 25 MG CAPSULE PO PRN (09:58)
[2019-02-07] MEDS ORDERED: DILTIAZEM CD 300 MG CAPSULE PO SCH (21:00)
[2019-02-07] MEDS: DILTIAZEM CD 240 MG CAPSULE PO SCH (22:06)
[2019-02-07] MEDS: LACTATED RINGERS 1,000 ML IV SCH (22:08)
[2019-02-08] MEDS: ALBUTEROL/IPRATROPIUM 3 ML NEB RESP TX SCH ×4 (00:36→20:29)
[2019-02-08] MEDS: PIPERACILLIN/TAZOBACTAM 3,375 MG in SODIUM CHLORIDE 0.9% 100 ML IV SCH ×2 (04:50→17:05)
[2019-02-08] MEDS: INSULIN REGULAR 100 UNIT/ML SUBCUT SCH ×4 (09:15→20:58)
[2019-02-08] MEDS: PANTOPRAZOLE 40 MG TABLET PO SCH (09:52)
[2019-02-08] MEDS: predniSONE 20 MG TABLET PO SCH (09:52)
[2019-02-08] MEDS: INSULIN GLARGINE 100 UNIT/ML SUBCUT SCH (09:52)
[2019-02-08] MEDS: METOPROLOL TARTRATE 50 MG TABLET PO SCH ×2 (09:52→20:56)
[2019-02-08] MEDS: LACTATED RINGERS 1,000 ML IV SCH (13:48)
[2019-02-08] MEDS: DILTIAZEM CD 240 MG CAPSULE PO SCH (20:57)
[2019-02-09] MEDS: ALBUTEROL/IPRATROPIUM 3 ML NEB RESP TX SCH ×3 (01:58→14:07)
[2019-02-09] MEDS: PIPERACILLIN/TAZOBACTAM 3,375 MG in SODIUM CHLORIDE 0.9% 100 ML IV SCH ×2 (04:47→17:07)
[2019-02-09 05:55] LABS: Basophils % 0.2 % (0.0-0.8); Eosinophils % 0.3 % (0.00-10.9); Hematocrit 29.4 VOL% (35.7-47.0); Hemoglobin 9.2 GM/DL (12.0-16.0); Immature Granulocytes % 2.3 %; Immature Granulocytes Absolute 0.25 #; Lymphocytes # 0.9 10*3/uL (1.4-4.0); Lymphocytes % 8.5 % (21.3-54.2); Mean Corpuscular HGB Conc 31.3 GM/DL (32-36); Mean Corpuscular Volume 86.5 FL (87-102); Mean Platelet Volume 9.5 FL (9.6-12.0); Monocytes % 9.4 % (1.7-12.7); Neutrophils % 79.3 % (38.7-73.9); Platelet Count 318 T/CUMM (130-400); Red Cell Distribution Width 15.8 % (9.3-17.3); White Blood Count 10.9 T/CUMM (4-12)
[2019-02-09 06:24] LABS: Calcium 8.3 MG/DL (8.5-10.1); Osmolality,Calculated 285.8 MOS/KG (273-304)
[2019-02-09] MEDS: INSULIN REGULAR 100 UNIT/ML SUBCUT SCH ×3 (08:49→16:57)
[2019-02-09] MEDS: METOPROLOL TARTRATE 50 MG TABLET PO SCH (09:06)
[2019-02-09] MEDS: INSULIN GLARGINE 100 UNIT/ML SUBCUT SCH (09:06)
[2019-02-09] MEDS: predniSONE 20 MG TABLET PO SCH (09:06)
[2019-02-09] MEDS: PANTOPRAZOLE 40 MG TABLET PO SCH (09:07)
[2019-02-09 17:03] VITALS: BP 115/62
[2019-02-09] MEDS: LACTATED RINGERS 1,000 ML IV SCH (18:36)
== END 2019-02-09 18:46 | disposition home health service (06) | DRG 683 ==
LOC: EDUNIT# → EDBD → N.ED 11:45 → SUATTDRO 14:25 → N.EDINP 14:25 → N.CC 14:58 → N.TELES 01-30 19:43
PROVIDERS: ADMIT Internal Medicine; ATTEND Internal Medicine

== ENCOUNTER 2019-06-01 11:18 | Inpatient (IN) ==
[2019-06-01] MEDS ORDERED: DILTIAZEM 50 MG/10 ML VIAL IV STA (11:41)
[2019-06-01] MEDS: dilTIAZem Drip 125 MG/125 ML PREMIX IV SCH ×2 (12:14→19:15)
[2019-06-01 12:20] LABS: Basophils % 0.1 % (0.0-0.8); Eosinophils # 0.1 10*3/uL (0.0-0.87); Eosinophils % 0.7 % (0.00-10.9); Hematocrit 29.3 VOL% (35.7-47.0); Hemoglobin 9.1 GM/DL (12.0-16.0); Immature Granulocytes % 0.6 %; Immature Granulocytes Absolute 0.05 #; Lymphocytes # 1.1 10*3/uL (1.4-4.0); Lymphocytes % 12.2 % (21.3-54.2); Mean Corpuscular HGB Conc 31.1 GM/DL (32-36); Mean Corpuscular Volume 85.9 FL (87-102); Mean Platelet Volume 11.3 FL (9.6-12.0); NRBC # 0.06 10*3/uL; Neutrophils % 77.4 % (38.7-73.9); Platelet Count 318 T/CUMM (130-400); Red Blood Count 3.41 MC/CUMM (3.8-5.5); Red Cell Distribution Width 15.9 % (9.3-17.3); White Blood Count 9.1 T/CUMM (4-12)
[2019-06-01 12:31] LABS: PT Patient Result 11.1 SECS (9.6-12.2)
[2019-06-01 13:00] LABS: Bilirubin,Total 0.4 MG/DL (0.2-1.0); Calcium 8.5 MG/DL (8.5-10.1); Osmolality,Calculated 296.8 MOS/KG (273-304); Total Protein 6.1 G/DL (6.4-8.3)
[2019-06-01] MEDS ORDERED: LEVOFLOXACIN INJ 500 MG in PREMIX 1 EACH IV STA (13:05)
[2019-06-01 13:50] LABS: Apearance,Urine Slightly Hazy (Clear); Bacteria,Urine Many /HPF (Few); Bilirubin,Urine Negative (Negative); Blood, Urine Negative (Negative); Glucose,Urine (UA) Negative (Negative); Ketones,Urine Negative (Negative); Mucus,Urine Moderate /LPF (Occasional); Nitrite,Urine Negative (Negative); Protein,Urine 30 MG/DL; Squamous Epithelial Cell,Urine Occasional /HPF (0-10); Urine Color Yellow (Yellow); Urine Specific Gravity 1.016 (1.001-1.035); Urine Urobilinogen < 2.0 EU/DL (0.2-1.0); WBC,Urine 4 /HPF (0-6)
[2019-06-01] MEDS ORDERED: ONDANSETRON 4 MG/2 ML VIAL IV PRN (14:22)
[2019-06-01] MEDS ORDERED: ENOXAPARIN 100 MG/ML SYRINGE SUBCUT SCH (14:30)
[2019-06-01] MEDS ORDERED: ENOXAPARIN 100 MG/ML SYRINGE SUBCUT ONE (14:31)
[2019-06-01] MEDS ORDERED: SODIUM CHLORIDE 0.9% 500 ML IV ONE (14:39)
[2019-06-01] MEDS: ENOXAPARIN 80 MG/0.8 ML SYRINGE SUBCUT SCH (15:00)
[2019-06-01] MEDS: LEVALBUTEROL 0.63 MG/3 ML NEB RESP TX SCH (20:10)
[2019-06-01] MEDS ORDERED: DILTIAZEM CD 120 MG CAPSULE PO SCH (21:00)
[2019-06-01] MEDS: MAGNESIUM OXIDE 400 MG TABLET PO SCH (22:10)
[2019-06-01] MEDS: METOPROLOL TARTRATE 100 MG TABLET PO SCH (22:10)
[2019-06-02] MEDS: LEVALBUTEROL 0.63 MG/3 ML NEB RESP TX SCH ×5 (00:52→22:54)
[2019-06-02] MEDS: ENOXAPARIN 80 MG/0.8 ML SYRINGE SUBCUT SCH ×2 (03:27→14:39)
[2019-06-02] MEDS: dilTIAZem Drip 125 MG/125 ML PREMIX IV SCH ×2 (05:25→18:02)
[2019-06-02 05:51] LABS: Basophils % 0.1 % (0.0-0.8); Eosinophils # 0.1 10*3/uL (0.0-0.87); Eosinophils % 1.7 % (0.00-10.9); Hemoglobin 8.5 GM/DL (12.0-16.0); Immature Granulocytes % 0.6 %; Immature Granulocytes Absolute 0.05 #; Lymphocytes # 1.1 10*3/uL (1.4-4.0); Lymphocytes % 13.7 % (21.3-54.2); Mean Corpuscular HGB Conc 31.5 GM/DL (32-36); Mean Corpuscular Volume 85.4 FL (87-102); Monocytes % 8.4 % (1.7-12.7); NRBC # 0.04 10*3/uL; Neutrophils % 75.5 % (38.7-73.9); Platelet Count 269 T/CUMM (130-400); Red Blood Count 3.16 MC/CUMM (3.8-5.5); White Blood Count 8.2 T/CUMM (4-12)
[2019-06-02 06:23] LABS: Albumin 1.8 G/DL (3.4-5.0); Bilirubin,Total 0.8 MG/DL (0.2-1.0); Calcium 8.3 MG/DL (8.5-10.1); Osmolality,Calculated 288.4 MOS/KG (273-304); Total Protein 5.5 G/DL (6.4-8.3)
[2019-06-02] MEDS ORDERED: FUROSEMIDE 40 MG TABLET PO SCH (09:00)
[2019-06-02] MEDS: ALLOPURINOL 100 MG TABLET PO SCH (09:52)
[2019-06-02] MEDS: METOPROLOL TARTRATE 100 MG TABLET PO SCH ×2 (09:52→20:54)
[2019-06-02] MEDS: PANTOPRAZOLE 40 MG TABLET PO SCH (09:52)
[2019-06-02] MEDS: MAGNESIUM OXIDE 400 MG TABLET PO SCH ×2 (09:52→20:54)
[2019-06-02] MEDS: FUROSEMIDE 40 MG/4 ML VIAL IV SCH (09:52)
[2019-06-02] MEDS: predniSONE 5 MG TABLET PO SCH (09:53)
[2019-06-02] MEDS: LEVOFLOXACIN INJ 750 MG in PREMIX 1 EACH IV SCH (09:57)
[2019-06-02] MEDS ORDERED: DEXTROSE 10% 25 GM/250 ML BAG IV PRN (10:09)
[2019-06-02] MEDS ORDERED: GLUCAGON 1 MG VIAL IM PRN (10:09)
[2019-06-02] MEDS: INSULIN REGULAR 100 UNIT/ML SUBCUT SCH ×3 (12:57→20:43)
[2019-06-03] MEDS: LEVALBUTEROL 0.63 MG/3 ML NEB RESP TX SCH ×4 (00:32→18:23)
[2019-06-03] MEDS: hydrOXYzine HCL 25 MG TABLET PO PRN ×3 (02:05→18:37)
[2019-06-03] MEDS: ENOXAPARIN 80 MG/0.8 ML SYRINGE SUBCUT SCH ×2 (02:48→15:52)
[2019-06-03] MEDS: dilTIAZem Drip 125 MG/125 ML PREMIX IV SCH (02:51)
[2019-06-03 05:16] LABS: Basophils % 0.1 % (0.0-0.8); Eosinophils # 0.1 10*3/uL (0.0-0.87); Eosinophils % 0.5 % (0.00-10.9); Hematocrit 28.5 VOL% (35.7-47.0); Immature Granulocytes % 0.6 %; Immature Granulocytes Absolute 0.06 #; Lymphocytes # 0.9 10*3/uL (1.4-4.0); Lymphocytes % 8.2 % (21.3-54.2); Mean Corpuscular HGB Conc 31.6 GM/DL (32-36); Mean Corpuscular Volume 84.8 FL (87-102); Monocytes % 6.9 % (1.7-12.7); NRBC # 0.05 10*3/uL; Neutrophils % 83.7 % (38.7-73.9); Platelet Count 316 T/CUMM (130-400); Red Blood Count 3.36 MC/CUMM (3.8-5.5); White Blood Count 10.7 T/CUMM (4-12)
[2019-06-03 05:53] LABS: Albumin 1.7 G/DL (3.4-5.0); Bilirubin,Total 0.5 MG/DL (0.2-1.0); Calcium 8.5 MG/DL (8.5-10.1); Osmolality,Calculated 292.7 MOS/KG (273-304); Total Protein 5.8 G/DL (6.4-8.3)
[2019-06-03] MEDS: INSULIN REGULAR 100 UNIT/ML SUBCUT SCH ×4 (08:33→21:25)
[2019-06-03] MEDS: FUROSEMIDE 40 MG/4 ML VIAL IV SCH (09:25)
[2019-06-03] MEDS: PANTOPRAZOLE 40 MG TABLET PO SCH (09:27)
[2019-06-03] MEDS: LEVOFLOXACIN INJ 750 MG in PREMIX 1 EACH IV SCH (09:27)
[2019-06-03] MEDS: predniSONE 5 MG TABLET PO SCH (09:27)
[2019-06-03] MEDS: MAGNESIUM OXIDE 400 MG TABLET PO SCH ×2 (09:27→21:25)
[2019-06-03] MEDS: ALLOPURINOL 100 MG TABLET PO SCH (09:27)
[2019-06-03] MEDS: METOPROLOL TARTRATE 100 MG TABLET PO SCH ×2 (09:29→21:25)
[2019-06-03] MEDS: DILTIAZEM 60 MG TABLET PO SCH ×3 (10:58→21:25)
[2019-06-03] MEDS ORDERED: DILTIAZEM 30 MG TABLET PO ONE (12:20)
[2019-06-04] MEDS: LEVALBUTEROL 0.63 MG/3 ML NEB RESP TX SCH ×5 (00:28→23:10)
[2019-06-04] MEDS: ENOXAPARIN 80 MG/0.8 ML SYRINGE SUBCUT SCH ×2 (02:54→14:10)
[2019-06-04] MEDS: hydrOXYzine HCL 25 MG TABLET PO PRN ×3 (03:55→23:09)
[2019-06-04 05:37] LABS: Basophils % 0.1 % (0.0-0.8); Eosinophils % 0.3 % (0.00-10.9); Hematocrit 29.8 VOL% (35.7-47.0); Hemoglobin 9.4 GM/DL (12.0-16.0); Immature Granulocytes % 0.9 %; Immature Granulocytes Absolute 0.09 #; Lymphocytes # 0.9 10*3/uL (1.4-4.0); Lymphocytes % 9.3 % (21.3-54.2); Mean Corpuscular HGB Conc 31.5 GM/DL (32-36); Mean Corpuscular Volume 85.6 FL (87-102); Monocytes % 9.1 % (1.7-12.7); NRBC # 0.05 10*3/uL; Neutrophils % 80.3 % (38.7-73.9); Platelet Count 377 T/CUMM (130-400); Red Blood Count 3.48 MC/CUMM (3.8-5.5)
[2019-06-04 06:01] LABS: Risk Ratio 1.79; VLDL CHOLESTEROL 12.8 MG/DL
[2019-06-04 06:03] LABS: Albumin 1.8 G/DL (3.4-5.0); Bilirubin,Total 0.5 MG/DL (0.2-1.0); Calcium 9.1 MG/DL (8.5-10.1); Osmolality,Calculated 287.3 MOS/KG (273-304)
[2019-06-04] MEDS: FUROSEMIDE 40 MG/4 ML VIAL IV SCH (08:11)
[2019-06-04] MEDS: DIGOXIN 0.25 MG TABLET PO SCH ×2 (08:12→13:44)
[2019-06-04] MEDS: ALLOPURINOL 100 MG TABLET PO SCH (08:12)
[2019-06-04] MEDS: DILTIAZEM 60 MG TABLET PO SCH (08:13)
[2019-06-04] MEDS: METOPROLOL TARTRATE 100 MG TABLET PO SCH ×2 (08:14→22:37)
[2019-06-04] MEDS: predniSONE 5 MG TABLET PO SCH (08:14)
[2019-06-04] MEDS: PANTOPRAZOLE 40 MG TABLET PO SCH (08:14)
[2019-06-04] MEDS: MAGNESIUM OXIDE 400 MG TABLET PO SCH ×2 (08:14→21:41)
[2019-06-04] MEDS: LEVOFLOXACIN INJ 750 MG in PREMIX 1 EACH IV SCH (08:14)
[2019-06-04] MEDS: INSULIN REGULAR 100 UNIT/ML SUBCUT SCH ×4 (09:44→22:37)
[2019-06-04] MEDS ORDERED: DILTIAZEM CD 180 MG CAPSULE PO ONE (12:00)
[2019-06-05] MEDS: LEVALBUTEROL 0.63 MG/3 ML NEB RESP TX PRN ×3 (03:32→15:28)
[2019-06-05] MEDS: ENOXAPARIN 80 MG/0.8 ML SYRINGE SUBCUT SCH (03:46)
[2019-06-05 04:42] LABS: Basophils % 0.1 % (0.0-0.8); Eosinophils % 0.3 % (0.00-10.9); Hematocrit 44.8 VOL% (35.7-47.0); Hemoglobin 13.9 GM/DL (12.0-16.0); Immature Granulocytes % 0.7 %; Immature Granulocytes Absolute 0.05 #; Lymphocytes # 0.6 10*3/uL (1.4-4.0); Lymphocytes % 7.4 % (21.3-54.2); Mean Corpuscular Volume 85.8 FL (87-102); Mean Platelet Volume 10.6 FL (9.6-12.0); Monocytes % 7.8 % (1.7-12.7); NRBC # 0.08 10*3/uL; Neutrophils % 83.7 % (38.7-73.9); Platelet Count 158 T/CUMM (130-400); Red Blood Count 5.22 MC/CUMM (3.8-5.5); Red Cell Distribution Width 16.3 % (9.3-17.3); White Blood Count 7.4 T/CUMM (4-12)
[2019-06-05 05:33] LABS: Calcium 8.8 MG/DL (8.5-10.1); Osmolality,Calculated 284.5 MOS/KG (273-304)
[2019-06-05] MEDS: LEVALBUTEROL 0.63 MG/3 ML NEB RESP TX SCH ×3 (07:33→20:55)
[2019-06-05] MEDS ORDERED: DIGOXIN 0.125 MG TABLET PO SCH ×2 (09:00→13:00)
[2019-06-05] MEDS: predniSONE 5 MG TABLET PO SCH (09:01)
[2019-06-05] MEDS: PANTOPRAZOLE 40 MG TABLET PO SCH (09:01)
[2019-06-05] MEDS: ALLOPURINOL 100 MG TABLET PO SCH (09:01)
[2019-06-05] MEDS: DILTIAZEM CD 240 MG CAPSULE PO SCH (09:01)
[2019-06-05] MEDS: FUROSEMIDE 40 MG/4 ML VIAL IV SCH (09:02)
[2019-06-05] MEDS: METOPROLOL TARTRATE 100 MG TABLET PO SCH ×2 (09:02→22:32)
[2019-06-05] MEDS: MAGNESIUM OXIDE 400 MG TABLET PO SCH ×2 (09:02→22:32)
[2019-06-05] MEDS: INSULIN REGULAR 100 UNIT/ML SUBCUT SCH ×4 (09:03→22:29)
[2019-06-05] MEDS: LEVOFLOXACIN INJ 750 MG in PREMIX 1 EACH IV SCH (09:03)
[2019-06-05] MEDS: DIGOXIN 0.125 MG TABLET PO SCH (12:42)
[2019-06-05 14:47] LABS: Hematocrit 30.6 VOL% (35.7-47.0); Hemoglobin 9.6 GM/DL (12.0-16.0)
[2019-06-06] MEDS: hydrOXYzine HCL 25 MG TABLET PO PRN (00:37)
[2019-06-06] MEDS: LEVALBUTEROL 0.63 MG/3 ML NEB RESP TX SCH ×4 (02:56→20:53)
[2019-06-06 04:56] LABS: Basophils % 0.1 % (0.0-0.8); Eosinophils % 0.4 % (0.00-10.9); Hematocrit 26.1 VOL% (35.7-47.0); Hemoglobin 8.2 GM/DL (12.0-16.0); Immature Granulocytes % 0.8 %; Immature Granulocytes Absolute 0.07 #; Lymphocytes # 0.8 10*3/uL (1.4-4.0); Mean Corpuscular HGB Conc 31.4 GM/DL (32-36); Mean Corpuscular Volume 84.5 FL (87-102); Mean Platelet Volume 10.6 FL (9.6-12.0); Monocytes % 10.3 % (1.7-12.7); NRBC # 0.04 10*3/uL; Neutrophils % 79.4 % (38.7-73.9); Platelet Count 345 T/CUMM (130-400); Red Blood Count 3.09 MC/CUMM (3.8-5.5); White Blood Count 9.3 T/CUMM (4-12)
[2019-06-06 05:30] LABS: Calcium 8.7 MG/DL (8.5-10.1); Osmolality,Calculated 288.3 MOS/KG (273-304)
[2019-06-06] MEDS: INSULIN REGULAR 100 UNIT/ML SUBCUT SCH ×4 (09:10→22:45)
[2019-06-06] MEDS ORDERED: DIAZEPAM 5 MG TABLET PO ONE (09:12)
[2019-06-06] MEDS ORDERED: fentaNYL 100 MCG/2 ML VIAL IV ONE (09:12)
[2019-06-06] MEDS ORDERED: MIDAZOLAM 2 MG/2 ML VIAL IV ONE (09:12)
[2019-06-06] MEDS: predniSONE 5 MG TABLET PO SCH (10:17)
[2019-06-06] MEDS: DILTIAZEM CD 240 MG CAPSULE PO SCH (10:17)
[2019-06-06] MEDS: MAGNESIUM OXIDE 400 MG TABLET PO SCH ×2 (10:17→22:43)
[2019-06-06] MEDS: METOPROLOL TARTRATE 100 MG TABLET PO SCH ×2 (10:17→22:44)
[2019-06-06] MEDS: PANTOPRAZOLE 40 MG TABLET PO SCH (10:17)
[2019-06-06] MEDS: ALLOPURINOL 100 MG TABLET PO SCH (10:17)
[2019-06-06] MEDS: LEVOFLOXACIN INJ 750 MG in PREMIX 1 EACH IV SCH (10:18)
[2019-06-06 10:37] LABS: % Iron Saturation 8.9 % (18-50)
[2019-06-06 10:49] LABS: Folate > 24.0 NG/ML (5.4-24.0); Vitamin B12 1544 PG/ML (211-911)
[2019-06-06] MEDS: FUROSEMIDE 40 MG/4 ML VIAL IV SCH (13:25)
[2019-06-06] MEDS ORDERED: FUROSEMIDE 40 MG/4 ML VIAL IV ONE (14:07)
[2019-06-06] MEDS: FERROUS SULFATE 325 MG TABLET PO SCH ×2 (14:15→22:43)
[2019-06-06] MEDS: DIGOXIN 0.125 MG TABLET PO SCH (14:15)
[2019-06-06 14:51] LABS: ABG Base Excess 2.6 MMOL/L (-2.5-2.5); ABG HCO3 26.6 MMOL/L (20-26); ABG Oxygen Saturation 90.9 % (95-100); ABG PCO2 39.3 MM HG (35-48); ABG PH 7.442 (7.35-7.45); ABG PO2 55.8 MM HG (80-95); ABG TCO2 24.3 MMOL/L (23-27)
[2019-06-07] MEDS: LEVALBUTEROL 0.63 MG/3 ML NEB RESP TX SCH ×4 (00:50→20:10)
[2019-06-07 02:57] LABS: ABG HCO3 28.8 MMOL/L (20-26); ABG Oxygen Saturation 87.9 % (95-100); ABG PCO2 37.5 MM HG (35-48); ABG PO2 47.4 MM HG (80-95); ABG TCO2 26.3 MMOL/L (23-27); Allen Test Positive
[2019-06-07 05:35] LABS: Basophils % 0.1 % (0.0-0.8); Eosinophils # 0.1 10*3/uL (0.0-0.87); Eosinophils % 0.6 % (0.00-10.9); Hematocrit 23.3 VOL% (35.7-47.0); Hemoglobin 7.5 GM/DL (12.0-16.0); Immature Granulocytes % 0.8 %; Immature Granulocytes Absolute 0.08 #; Lymphocytes # 0.8 10*3/uL (1.4-4.0); Lymphocytes % 7.7 % (21.3-54.2); Mean Corpuscular HGB Conc 32.2 GM/DL (32-36); Mean Corpuscular Volume 82.6 FL (87-102); Monocytes % 9.8 % (1.7-12.7); NRBC # 0.02 10*3/uL; Platelet Count 339 T/CUMM (130-400); Red Blood Count 2.82 MC/CUMM (3.8-5.5); Red Cell Distribution Width 15.9 % (9.3-17.3); White Blood Count 10.1 T/CUMM (4-12)
[2019-06-07 05:51] LABS: Calcium 8.3 MG/DL (8.5-10.1); Osmolality,Calculated 291.7 MOS/KG (273-304)
[2019-06-07 06:15] LABS: ABG HCO3 28.2 MMOL/L (20-26); ABG Oxygen Saturation 98.4 % (95-100); ABG PCO2 40.8 MM HG (35-48); ABG PH 7.457 (7.35-7.45); ABG PO2 153.6 MM HG (80-95); ABG TCO2 29.4 MMOL/L (23-27); Allen Test Positive; Pt O2 Delivery Device Other
[2019-06-07] MEDS: LEVOFLOXACIN INJ 750 MG in PREMIX 1 EACH IV SCH (08:59)
[2019-06-07] MEDS: FERROUS SULFATE 325 MG TABLET PO SCH ×2 (09:00→21:33)
[2019-06-07] MEDS: METOPROLOL TARTRATE 100 MG TABLET PO SCH ×2 (09:00→21:33)
[2019-06-07] MEDS: PANTOPRAZOLE 40 MG TABLET PO SCH (09:00)
[2019-06-07] MEDS: ALLOPURINOL 100 MG TABLET PO SCH (09:00)
[2019-06-07] MEDS: FUROSEMIDE 40 MG TABLET PO SCH (09:00)
[2019-06-07] MEDS: DILTIAZEM CD 240 MG CAPSULE PO SCH (09:00)
[2019-06-07] MEDS: predniSONE 5 MG TABLET PO SCH (09:01)
[2019-06-07] MEDS: MAGNESIUM OXIDE 400 MG TABLET PO SCH ×2 (09:01→21:32)
[2019-06-07] MEDS: INSULIN REGULAR 100 UNIT/ML SUBCUT SCH ×4 (09:15→22:22)
[2019-06-07] MEDS ORDERED: SODIUM CHLORIDE 0.9% 1,000 ML IV PRN (09:44)
[2019-06-07] MEDS: prednisoLONE ACETATE 1% OPH SUSP 5 ML BOTTLE LEFT EYE PRN (12:53)
[2019-06-07] MEDS: DIGOXIN 0.125 MG TABLET PO SCH (15:00)
[2019-06-07] MEDS: PANTOPRAZOLE 40 MG VIAL IV SCH (21:33)
[2019-06-08] MEDS: LEVALBUTEROL 0.63 MG/3 ML NEB RESP TX SCH ×4 (00:32→19:54)
[2019-06-08 06:35] LABS: Basophils % 0.2 % (0.0-0.8); Eosinophils # 0.2 10*3/uL (0.0-0.87); Eosinophils % 1.2 % (0.00-10.9); Hematocrit 33.7 VOL% (35.7-47.0); Hemoglobin 10.7 GM/DL (12.0-16.0); Immature Granulocytes Absolute 0.13 #; Lymphocytes # 0.8 10*3/uL (1.4-4.0); Lymphocytes % 6.2 % (21.3-54.2); Mean Corpuscular HGB Conc 31.8 GM/DL (32-36); Mean Corpuscular Volume 87.8 FL (87-102); NRBC # 0.06 10*3/uL; Neutrophils % 84.4 % (38.7-73.9); Platelet Count 283 T/CUMM (130-400); Red Blood Count 3.84 MC/CUMM (3.8-5.5); Red Cell Distribution Width 16.1 % (9.3-17.3); White Blood Count 12.9 T/CUMM (4-12)
[2019-06-08 07:15] LABS: Calcium 8.4 MG/DL (8.5-10.1); Osmolality,Calculated 291.7 MOS/KG (273-304)
[2019-06-08] MEDS: INSULIN REGULAR 100 UNIT/ML SUBCUT SCH ×4 (09:52→21:13)
[2019-06-08] MEDS: MAGNESIUM OXIDE 400 MG TABLET PO SCH ×2 (09:54→21:13)
[2019-06-08] MEDS: LEVOFLOXACIN INJ 750 MG in PREMIX 1 EACH IV SCH (09:54)
[2019-06-08] MEDS: prednisoLONE ACETATE 1% OPH SUSP 5 ML BOTTLE LEFT EYE PRN (09:54)
[2019-06-08] MEDS: FERROUS SULFATE 325 MG TABLET PO SCH ×2 (09:54→21:13)
[2019-06-08] MEDS: ALLOPURINOL 100 MG TABLET PO SCH (09:54)
[2019-06-08] MEDS: FUROSEMIDE 40 MG TABLET PO SCH (09:54)
[2019-06-08] MEDS: predniSONE 5 MG TABLET PO SCH (09:54)
[2019-06-08] MEDS: PANTOPRAZOLE 40 MG VIAL IV SCH ×2 (09:55→21:13)
[2019-06-08] MEDS ORDERED: FUROSEMIDE 40 MG/4 ML VIAL IV ONE (10:42)
[2019-06-08] MEDS: DILTIAZEM CD 240 MG CAPSULE PO SCH (11:18)
[2019-06-08] MEDS: hydrOXYzine HCL 25 MG TABLET PO PRN (11:19)
[2019-06-08] MEDS: DIGOXIN 0.125 MG TABLET PO SCH (13:35)
[2019-06-08] MEDS: METOPROLOL TARTRATE 100 MG TABLET PO SCH ×2 (13:36→21:13)
[2019-06-09] MEDS: LEVALBUTEROL 0.63 MG/3 ML NEB RESP TX SCH ×4 (00:32→19:42)
[2019-06-09 06:22] LABS: Basophils % 0.2 % (0.0-0.8); Eosinophils # 0.2 10*3/uL (0.0-0.87); Eosinophils % 1.4 % (0.00-10.9); Hematocrit 32.5 VOL% (35.7-47.0); Hemoglobin 10.5 GM/DL (12.0-16.0); Immature Granulocytes % 0.9 %; Immature Granulocytes Absolute 0.12 #; Lymphocytes % 7.7 % (21.3-54.2); Mean Corpuscular HGB Conc 32.3 GM/DL (32-36); Mean Corpuscular Volume 87.6 FL (87-102); Mean Platelet Volume 10.1 FL (9.6-12.0); Monocytes % 8.2 % (1.7-12.7); NRBC # 0.05 10*3/uL; Neutrophils % 81.6 % (38.7-73.9); Platelet Count 259 T/CUMM (130-400); Red Blood Count 3.71 MC/CUMM (3.8-5.5); Red Cell Distribution Width 16.4 % (9.3-17.3); White Blood Count 13.2 T/CUMM (4-12)
[2019-06-09 06:41] LABS: Calcium 8.9 MG/DL (8.5-10.1); Osmolality,Calculated 283.3 MOS/KG (273-304)
[2019-06-09] MEDS: INSULIN REGULAR 100 UNIT/ML SUBCUT SCH ×3 (09:45→18:12)
[2019-06-09] MEDS: DILTIAZEM CD 240 MG CAPSULE PO SCH (09:46)
[2019-06-09] MEDS: MAGNESIUM OXIDE 400 MG TABLET PO SCH ×2 (09:46→21:37)
[2019-06-09] MEDS: FUROSEMIDE 40 MG TABLET PO SCH (09:47)
[2019-06-09] MEDS: ALLOPURINOL 100 MG TABLET PO SCH (09:47)
[2019-06-09] MEDS: predniSONE 5 MG TABLET PO SCH (09:47)
[2019-06-09] MEDS: FERROUS SULFATE 325 MG TABLET PO SCH ×2 (09:47→21:37)
[2019-06-09] MEDS: METOPROLOL TARTRATE 100 MG TABLET PO SCH ×2 (09:47→21:37)
[2019-06-09] MEDS: LEVOFLOXACIN INJ 750 MG in PREMIX 1 EACH IV SCH (09:48)
[2019-06-09] MEDS: PANTOPRAZOLE 40 MG VIAL IV SCH ×2 (09:54→21:37)
[2019-06-09] MEDS ORDERED: FUROSEMIDE 40 MG/4 ML VIAL IV ONE (10:41)
[2019-06-09] MEDS: PIPERACILLIN/TAZOBACTAM 3,375 MG in SODIUM CHLORIDE 0.9% 100 ML IV SCH (11:51)
[2019-06-09] MEDS: hydrOXYzine HCL 25 MG TABLET PO PRN (12:12)
[2019-06-09] MEDS: ACETAMINOPHEN 325 MG TABLET PO PRN (13:27)
[2019-06-09] MEDS: DIGOXIN 0.125 MG TABLET PO SCH (13:32)
[2019-06-10] MEDS: PIPERACILLIN/TAZOBACTAM 3,375 MG in SODIUM CHLORIDE 0.9% 100 ML IV SCH ×3 (00:37→16:43)
[2019-06-10] MEDS: LEVALBUTEROL 0.63 MG/3 ML NEB RESP TX SCH ×4 (02:01→19:43)
[2019-06-10] MEDS: INSULIN REGULAR 100 UNIT/ML SUBCUT SCH ×5 (02:19→22:10)
[2019-06-10] MEDS: ACETAMINOPHEN 325 MG TABLET PO PRN ×3 (02:48→13:58)
[2019-06-10 05:31] LABS: Basophils % 0.1 % (0.0-0.8); Eosinophils # 0.2 10*3/uL (0.0-0.87); Eosinophils % 1.5 % (0.00-10.9); Hematocrit 29.9 VOL% (35.7-47.0); Hemoglobin 9.6 GM/DL (12.0-16.0); Immature Granulocytes % 1.3 %; Immature Granulocytes Absolute 0.18 #; Lymphocytes % 6.9 % (21.3-54.2); Mean Corpuscular HGB Conc 32.1 GM/DL (32-36); Mean Corpuscular Volume 86.4 FL (87-102); Mean Platelet Volume 10.1 FL (9.6-12.0); NRBC # 0.05 10*3/uL; Neutrophils % 82.2 % (38.7-73.9); Platelet Count 261 T/CUMM (130-400); Red Blood Count 3.46 MC/CUMM (3.8-5.5); Red Cell Distribution Width 16.8 % (9.3-17.3); White Blood Count 13.8 T/CUMM (4-12)
[2019-06-10 05:48] LABS: Calcium 8.4 MG/DL (8.5-10.1); Osmolality,Calculated 291.6 MOS/KG (273-304)
[2019-06-10] MEDS: PANTOPRAZOLE 40 MG VIAL IV SCH ×2 (09:55→22:15)
[2019-06-10] MEDS: MAGNESIUM OXIDE 400 MG TABLET PO SCH ×2 (09:56→22:10)
[2019-06-10] MEDS: DILTIAZEM CD 240 MG CAPSULE PO SCH (09:56)
[2019-06-10] MEDS: FUROSEMIDE 40 MG TABLET PO SCH (09:56)
[2019-06-10] MEDS: METOPROLOL TARTRATE 100 MG TABLET PO SCH ×2 (09:57→22:11)
[2019-06-10] MEDS: ALLOPURINOL 100 MG TABLET PO SCH (09:58)
[2019-06-10] MEDS: FERROUS SULFATE 325 MG TABLET PO SCH ×2 (09:58→22:10)
[2019-06-10] MEDS: predniSONE 5 MG TABLET PO SCH (10:17)
[2019-06-10] MEDS: DIGOXIN 0.125 MG TABLET PO SCH (13:58)
[2019-06-10] MEDS: LOPERAMIDE 2 MG CAPSULE PO PRN (16:43)
[2019-06-10] MEDS: IRON SUCROSE 200 MG in SODIUM CHLORIDE 0.9% 100 ML IV SCH (17:30)
[2019-06-11] MEDS: PIPERACILLIN/TAZOBACTAM 3,375 MG in SODIUM CHLORIDE 0.9% 100 ML IV SCH ×3 (00:38→17:55)
[2019-06-11] MEDS: LEVALBUTEROL 0.63 MG/3 ML NEB RESP TX SCH ×4 (01:00→19:40)
[2019-06-11 05:44] LABS: INR 1.1; PT Patient Result 11.4 SECS (9.6-12.2); Partial Thromboplastin Time 26.8 SECS (20.8-36.0)
[2019-06-11 05:45] LABS: Basophils % 0.1 % (0.0-0.8); Eosinophils # 0.2 10*3/uL (0.0-0.87); Eosinophils % 1.2 % (0.00-10.9); Hematocrit 30.5 VOL% (35.7-47.0); Immature Granulocytes % 1.1 %; Immature Granulocytes Absolute 0.16 #; Lymphocytes # 0.8 10*3/uL (1.4-4.0); Lymphocytes % 5.2 % (21.3-54.2); Mean Corpuscular HGB Conc 32.8 GM/DL (32-36); Mean Corpuscular Volume 86.2 FL (87-102); Mean Platelet Volume 11.2 FL (9.6-12.0); Monocytes % 8.3 % (1.7-12.7); NRBC # 0.02 10*3/uL; Neutrophils % 84.1 % (38.7-73.9); Platelet Count 232 T/CUMM (130-400); Red Blood Count 3.54 MC/CUMM (3.8-5.5); White Blood Count 14.4 T/CUMM (4-12)
[2019-06-11 06:02] LABS: Calcium 8.1 MG/DL (8.5-10.1); Osmolality,Calculated 292.4 MOS/KG (273-304)
[2019-06-11 06:06] LABS: Hypochromasia 1+; Microcytosis 1+; Platelet Estimate Normal; Polychromasia Few
[2019-06-11] MEDS ORDERED: BENZONATATE 100 MG CAPSULE PO ONE (08:00)
[2019-06-11] MEDS ORDERED: diphenhydrAMINE 50 MG/1 ML VIAL IM ONE (08:00)
[2019-06-11] MEDS: INSULIN REGULAR 100 UNIT/ML SUBCUT SCH ×4 (08:07→20:29)
[2019-06-11] MEDS ORDERED: LIDOCAINE 2% 20 ML VIAL RESP TX ONE (08:30)
[2019-06-11] MEDS ORDERED: LIDOCAINE 2% VISCOUS 100 ML BOTTLE SWISH/SPIT ONE (08:30)
[2019-06-11] MEDS ORDERED: LIDOCAINE 1% 20 ML VIAL MISC INJ ONE (08:30)
[2019-06-11] MEDS ORDERED: MIDAZOLAM 2 MG/2 ML VIAL ONE (08:56)
[2019-06-11] MEDS: FUROSEMIDE 40 MG TABLET PO SCH (11:25)
[2019-06-11] MEDS: predniSONE 5 MG TABLET PO SCH (11:25)
[2019-06-11] MEDS: MAGNESIUM OXIDE 400 MG TABLET PO SCH ×2 (11:25→20:34)
[2019-06-11] MEDS: ALLOPURINOL 100 MG TABLET PO SCH (11:25)
[2019-06-11] MEDS: DILTIAZEM CD 180 MG CAPSULE PO SCH (11:25)
[2019-06-11] MEDS: METOPROLOL TARTRATE 100 MG TABLET PO SCH ×2 (11:25→20:35)
[2019-06-11] MEDS: FERROUS SULFATE 325 MG TABLET PO SCH ×2 (11:25→20:34)
[2019-06-11] MEDS: PANTOPRAZOLE 40 MG VIAL IV SCH ×2 (11:45→20:30)
[2019-06-11] MEDS: IRON SUCROSE 200 MG in SODIUM CHLORIDE 0.9% 100 ML IV SCH (11:50)
[2019-06-11] MEDS: ACETAMINOPHEN 325 MG TABLET PO PRN (11:52)
[2019-06-11] MEDS: DIGOXIN 0.125 MG TABLET PO SCH (13:59)
[2019-06-11] MEDS ORDERED: MAGNESIUM SULF RIDER 2 GM in PREMIX 1 EACH IV ONE (15:04)
[2019-06-11] MEDS ORDERED: DIGOXIN 0.5 MG/2 ML AMP IV ONE (15:30)
[2019-06-11] MEDS: ASCORBIC ACID 500 MG TABLET PO SCH ×2 (15:55→20:34)
[2019-06-11] MEDS ORDERED: GLUCAGON 1 MG VIAL IM PRN (16:59)
[2019-06-11] MEDS ORDERED: DEXTROSE 50% 25 GM/50 ML VIAL IV PRN (16:59)
[2019-06-12] MEDS: PIPERACILLIN/TAZOBACTAM 3,375 MG in SODIUM CHLORIDE 0.9% 100 ML IV SCH ×3 (00:02→17:50)
[2019-06-12] MEDS: LEVALBUTEROL 0.63 MG/3 ML NEB RESP TX SCH ×4 (01:30→20:18)
[2019-06-12] MEDS: ACETAMINOPHEN 325 MG TABLET PO PRN ×2 (01:37→12:35)
[2019-06-12 05:00] LABS: Basophils % 0.2 % (0.0-0.8); Eosinophils # 0.2 10*3/uL (0.0-0.87); Eosinophils % 1.2 % (0.00-10.9); Hematocrit 32.9 VOL% (35.7-47.0); Hemoglobin 10.5 GM/DL (12.0-16.0); Immature Granulocytes Absolute 0.13 #; Lymphocytes # 0.9 10*3/uL (1.4-4.0); Lymphocytes % 6.6 % (21.3-54.2); Mean Corpuscular HGB Conc 31.9 GM/DL (32-36); Mean Corpuscular Volume 86.4 FL (87-102); Mean Platelet Volume 10.2 FL (9.6-12.0); NRBC # 0.04 10*3/uL; Platelet Count 289 T/CUMM (130-400); Red Blood Count 3.81 MC/CUMM (3.8-5.5); Red Cell Distribution Width 17.2 % (9.3-17.3); White Blood Count 13.2 T/CUMM (4-12)
[2019-06-12 05:17] LABS: Calcium 8.3 MG/DL (8.5-10.1); Osmolality,Calculated 294.1 MOS/KG (273-304)
[2019-06-12] MEDS: INSULIN REGULAR 100 UNIT/ML SUBCUT SCH ×4 (07:47→20:21)
[2019-06-12] MEDS: PANTOPRAZOLE 40 MG VIAL IV SCH ×2 (09:07→20:20)
[2019-06-12] MEDS: predniSONE 5 MG TABLET PO SCH (09:07)
[2019-06-12] MEDS: ASCORBIC ACID 500 MG TABLET PO SCH ×2 (09:07→20:20)
[2019-06-12] MEDS: FERROUS SULFATE 325 MG TABLET PO SCH ×2 (09:07→20:21)
[2019-06-12] MEDS: ALLOPURINOL 100 MG TABLET PO SCH (09:08)
[2019-06-12] MEDS: DILTIAZEM CD 180 MG CAPSULE PO SCH (09:08)
[2019-06-12] MEDS: FUROSEMIDE 40 MG TABLET PO SCH (09:08)
[2019-06-12] MEDS: METOPROLOL TARTRATE 100 MG TABLET PO SCH ×2 (09:08→20:20)
[2019-06-12] MEDS: MAGNESIUM OXIDE 400 MG TABLET PO SCH ×2 (09:08→20:20)
[2019-06-12] MEDS: IRON SUCROSE 200 MG in SODIUM CHLORIDE 0.9% 100 ML IV SCH (09:14)
[2019-06-12] MEDS: DIGOXIN 0.125 MG TABLET PO SCH (13:45)
[2019-06-12] MEDS: LOPERAMIDE 2 MG CAPSULE PO PRN (14:05)
[2019-06-12] MEDS: hydrOXYzine HCL 25 MG TABLET PO PRN (20:35)
[2019-06-13] MEDS: LEVALBUTEROL 0.63 MG/3 ML NEB RESP TX SCH ×4 (00:40→19:33)
[2019-06-13] MEDS: PIPERACILLIN/TAZOBACTAM 3,375 MG in SODIUM CHLORIDE 0.9% 100 ML IV SCH ×3 (00:58→17:56)
[2019-06-13 04:54] LABS: Basophils % 0.3 % (0.0-0.8); Eosinophils # 0.3 10*3/uL (0.0-0.87); Eosinophils % 2.4 % (0.00-10.9); Hemoglobin 10.2 GM/DL (12.0-16.0); Immature Granulocytes % 1.4 %; Immature Granulocytes Absolute 0.16 #; Lymphocytes % 8.5 % (21.3-54.2); Mean Corpuscular HGB Conc 31.9 GM/DL (32-36); Mean Platelet Volume 9.9 FL (9.6-12.0); NRBC # 0.02 10*3/uL; Neutrophils % 75.4 % (38.7-73.9); Platelet Count 275 T/CUMM (130-400); Red Blood Count 3.68 MC/CUMM (3.8-5.5); Red Cell Distribution Width 17.2 % (9.3-17.3); White Blood Count 11.4 T/CUMM (4-12)
[2019-06-13 05:14] LABS: Calcium 8.3 MG/DL (8.5-10.1); Osmolality,Calculated 286.8 MOS/KG (273-304)
[2019-06-13] MEDS: hydrOXYzine HCL 25 MG TABLET PO PRN ×3 (05:45→20:26)
[2019-06-13] MEDS: INSULIN REGULAR 100 UNIT/ML SUBCUT SCH ×4 (09:11→20:26)
[2019-06-13] MEDS: PANTOPRAZOLE 40 MG VIAL IV SCH ×2 (09:13→20:26)
[2019-06-13] MEDS: DILTIAZEM CD 180 MG CAPSULE PO SCH (09:14)
[2019-06-13] MEDS: ASCORBIC ACID 500 MG TABLET PO SCH ×2 (09:14→20:26)
[2019-06-13] MEDS: METOPROLOL TARTRATE 100 MG TABLET PO SCH ×2 (09:14→20:26)
[2019-06-13] MEDS: FUROSEMIDE 40 MG TABLET PO SCH (09:15)
[2019-06-13] MEDS: ALLOPURINOL 100 MG TABLET PO SCH (09:15)
[2019-06-13] MEDS: MAGNESIUM OXIDE 400 MG TABLET PO SCH ×2 (09:15→20:26)
[2019-06-13] MEDS: FERROUS SULFATE 325 MG TABLET PO SCH ×2 (09:15→20:26)
[2019-06-13] MEDS: predniSONE 5 MG TABLET PO SCH (10:11)
[2019-06-13] MEDS: LOPERAMIDE 2 MG CAPSULE PO PRN (10:12)
[2019-06-13] MEDS ORDERED: POTASSIUM CHLORIDE 20 MEQ PACK PO ONE (11:17)
[2019-06-13] MEDS: IRON SUCROSE 200 MG in SODIUM CHLORIDE 0.9% 100 ML IV SCH (13:45)
[2019-06-13] MEDS: DIGOXIN 0.125 MG TABLET PO SCH (13:46)
[2019-06-13] MEDS: LINEZOLID INJ 300 MG in PREMIX 1 EACH IV SCH (15:35)
[2019-06-14] MEDS: LEVALBUTEROL 0.63 MG/3 ML NEB RESP TX SCH ×4 (01:22→19:40)
[2019-06-14] MEDS: LINEZOLID INJ 300 MG in PREMIX 1 EACH IV SCH ×2 (01:31→13:13)
[2019-06-14] MEDS: PIPERACILLIN/TAZOBACTAM 3,375 MG in SODIUM CHLORIDE 0.9% 100 ML IV SCH ×3 (02:00→16:10)
[2019-06-14 06:15] LABS: Basophils % 0.4 % (0.0-0.8); Eosinophils # 0.2 10*3/uL (0.0-0.87); Eosinophils % 2.2 % (0.00-10.9); Hematocrit 29.8 VOL% (35.7-47.0); Hemoglobin 9.3 GM/DL (12.0-16.0); Immature Granulocytes % 1.3 %; Immature Granulocytes Absolute 0.14 #; Lymphocytes # 1.1 10*3/uL (1.4-4.0); Lymphocytes % 9.6 % (21.3-54.2); Mean Corpuscular HGB Conc 31.2 GM/DL (32-36); Mean Corpuscular Volume 88.2 FL (87-102); Mean Platelet Volume 10.8 FL (9.6-12.0); Monocytes % 13.4 % (1.7-12.7); NRBC # 0.05 10*3/uL; Neutrophils % 73.1 % (38.7-73.9); Platelet Count 312 T/CUMM (130-400); Red Blood Count 3.38 MC/CUMM (3.8-5.5); Red Cell Distribution Width 17.2 % (9.3-17.3); White Blood Count 11.2 T/CUMM (4-12)
[2019-06-14 06:42] LABS: Osmolality,Calculated 289.7 MOS/KG (273-304)
[2019-06-14] MEDS: INSULIN REGULAR 100 UNIT/ML SUBCUT SCH ×4 (08:58→21:45)
[2019-06-14] MEDS: PANTOPRAZOLE 40 MG VIAL IV SCH ×2 (09:00→21:45)
[2019-06-14] MEDS: MAGNESIUM OXIDE 400 MG TABLET PO SCH ×2 (09:01→21:46)
[2019-06-14] MEDS: DILTIAZEM CD 180 MG CAPSULE PO SCH (09:01)
[2019-06-14] MEDS: ASCORBIC ACID 500 MG TABLET PO SCH ×2 (09:02→21:45)
[2019-06-14] MEDS: FERROUS SULFATE 325 MG TABLET PO SCH ×2 (09:02→21:45)
[2019-06-14] MEDS: METOPROLOL TARTRATE 100 MG TABLET PO SCH ×2 (09:03→21:45)
[2019-06-14] MEDS: ALLOPURINOL 100 MG TABLET PO SCH (09:03)
[2019-06-14] MEDS: predniSONE 5 MG TABLET PO SCH (09:03)
[2019-06-14] MEDS: FUROSEMIDE 40 MG TABLET PO SCH ×2 (09:11→09:13)
[2019-06-14] MEDS: IRON SUCROSE 200 MG in SODIUM CHLORIDE 0.9% 100 ML IV SCH (09:11)
[2019-06-14] MEDS: LOPERAMIDE 2 MG CAPSULE PO PRN ×2 (09:59→14:39)
[2019-06-14] MEDS: hydrOXYzine HCL 25 MG TABLET PO PRN ×2 (09:59→23:57)
[2019-06-14] MEDS: DIGOXIN 0.125 MG TABLET PO SCH (13:11)
[2019-06-15] MEDS: PIPERACILLIN/TAZOBACTAM 3,375 MG in SODIUM CHLORIDE 0.9% 100 ML IV SCH ×3 (00:05→16:56)
[2019-06-15] MEDS: LEVALBUTEROL 0.63 MG/3 ML NEB RESP TX SCH ×4 (00:16→20:45)
[2019-06-15] MEDS: LINEZOLID INJ 300 MG in PREMIX 1 EACH IV SCH ×2 (02:45→13:41)
[2019-06-15 04:50] LABS: Basophils % 0.4 % (0.0-0.8); Eosinophils # 0.3 10*3/uL (0.0-0.87); Eosinophils % 2.6 % (0.00-10.9); Hematocrit 31.3 VOL% (35.7-47.0); Hemoglobin 9.6 GM/DL (12.0-16.0); Immature Granulocytes % 2.6 %; Immature Granulocytes Absolute 0.26 #; Mean Corpuscular HGB Conc 30.7 GM/DL (32-36); Mean Corpuscular Volume 88.4 FL (87-102); Mean Platelet Volume 9.7 FL (9.6-12.0); NRBC # 0.11 10*3/uL; Neutrophils % 69.4 % (38.7-73.9); Platelet Count 321 T/CUMM (130-400); Red Blood Count 3.54 MC/CUMM (3.8-5.5); Red Cell Distribution Width 17.2 % (9.3-17.3); White Blood Count 10.1 T/CUMM (4-12)
[2019-06-15 05:14] LABS: Calcium 7.9 MG/DL (8.5-10.1); Osmolality,Calculated 289.6 MOS/KG (273-304)
[2019-06-15] MEDS: INSULIN REGULAR 100 UNIT/ML SUBCUT SCH ×4 (09:17→20:46)
[2019-06-15] MEDS: DILTIAZEM CD 180 MG CAPSULE PO SCH (09:19)
[2019-06-15] MEDS: MAGNESIUM OXIDE 400 MG TABLET PO SCH ×2 (09:20→21:11)
[2019-06-15] MEDS: predniSONE 5 MG TABLET PO SCH (09:20)
[2019-06-15] MEDS: ASCORBIC ACID 500 MG TABLET PO SCH ×2 (09:20→21:10)
[2019-06-15] MEDS: FUROSEMIDE 40 MG TABLET PO SCH (09:20)
[2019-06-15] MEDS: METOPROLOL TARTRATE 100 MG TABLET PO SCH ×2 (09:20→21:10)
[2019-06-15] MEDS: FERROUS SULFATE 325 MG TABLET PO SCH ×2 (09:20→21:11)
[2019-06-15] MEDS: ALLOPURINOL 100 MG TABLET PO SCH (09:20)
[2019-06-15] MEDS: PANTOPRAZOLE 40 MG VIAL IV SCH ×2 (09:21→21:11)
[2019-06-15] MEDS: hydrOXYzine HCL 25 MG TABLET PO PRN ×2 (09:28→21:12)
[2019-06-15] MEDS: DIGOXIN 0.125 MG TABLET PO SCH (13:41)
[2019-06-15] MEDS: LOPERAMIDE 2 MG CAPSULE PO PRN (21:11)
[2019-06-16] MEDS: LINEZOLID INJ 300 MG in PREMIX 1 EACH IV SCH ×2 (01:00→13:25)
[2019-06-16] MEDS: LEVALBUTEROL 0.63 MG/3 ML NEB RESP TX SCH ×4 (01:09→20:54)
[2019-06-16] MEDS: PIPERACILLIN/TAZOBACTAM 3,375 MG in SODIUM CHLORIDE 0.9% 100 ML IV SCH ×3 (02:00→16:54)
[2019-06-16 05:40] LABS: Basophils # 0.1 10*3/uL (0.0-0.2); Basophils % 0.5 % (0.0-0.8); Eosinophils # 0.2 10*3/uL (0.0-0.87); Eosinophils % 1.7 % (0.00-10.9); Hematocrit 31.8 VOL% (35.7-47.0); Hemoglobin 9.9 GM/DL (12.0-16.0); Immature Granulocytes % 2.6 %; Immature Granulocytes Absolute 0.28 #; Lymphocytes # 1.2 10*3/uL (1.4-4.0); Lymphocytes % 10.9 % (21.3-54.2); Mean Corpuscular HGB Conc 31.1 GM/DL (32-36); Mean Corpuscular Volume 87.6 FL (87-102); Mean Platelet Volume 9.5 FL (9.6-12.0); Monocytes % 12.7 % (1.7-12.7); NRBC # 0.08 10*3/uL; Neutrophils % 71.6 % (38.7-73.9); Platelet Count 325 T/CUMM (130-400); Red Blood Count 3.63 MC/CUMM (3.8-5.5); Red Cell Distribution Width 17.2 % (9.3-17.3); White Blood Count 10.8 T/CUMM (4-12)
[2019-06-16 05:54] LABS: Calcium 7.9 MG/DL (8.5-10.1); Osmolality,Calculated 289.6 MOS/KG (273-304)
[2019-06-16] MEDS: hydrOXYzine HCL 25 MG TABLET PO PRN ×2 (06:17→20:58)
[2019-06-16] MEDS: INSULIN REGULAR 100 UNIT/ML SUBCUT SCH ×4 (08:54→20:59)
[2019-06-16] MEDS: DILTIAZEM CD 180 MG CAPSULE PO SCH (08:58)
[2019-06-16] MEDS: PANTOPRAZOLE 40 MG VIAL IV SCH ×2 (08:58→20:59)
[2019-06-16] MEDS: MAGNESIUM OXIDE 400 MG TABLET PO SCH ×2 (08:59→20:59)
[2019-06-16] MEDS: ASCORBIC ACID 500 MG TABLET PO SCH ×2 (08:59→20:58)
[2019-06-16] MEDS: METOPROLOL TARTRATE 100 MG TABLET PO SCH ×2 (09:00→20:58)
[2019-06-16] MEDS: FUROSEMIDE 40 MG TABLET PO SCH (09:00)
[2019-06-16] MEDS: ALLOPURINOL 100 MG TABLET PO SCH (09:00)
[2019-06-16] MEDS: FERROUS SULFATE 325 MG TABLET PO SCH ×2 (09:00→20:58)
[2019-06-16] MEDS: predniSONE 5 MG TABLET PO SCH (09:06)
[2019-06-16] MEDS: LOPERAMIDE 2 MG CAPSULE PO PRN ×2 (09:06→20:58)
[2019-06-16] MEDS: prednisoLONE ACETATE 1% OPH SUSP 5 ML BOTTLE LEFT EYE PRN (13:25)
[2019-06-16] MEDS: DIGOXIN 0.125 MG TABLET PO SCH (13:26)
[2019-06-16] MEDS: CYPROHEPTADINE 4 MG TABLET PO SCH (20:58)
[2019-06-17] MEDS: LEVALBUTEROL 0.63 MG/3 ML NEB RESP TX SCH ×2 (01:46→07:12)
[2019-06-17] MEDS: LINEZOLID INJ 300 MG in PREMIX 1 EACH IV SCH ×2 (02:00→13:09)
[2019-06-17 05:27] LABS: Basophils # 0.1 10*3/uL (0.0-0.2); Basophils % 0.5 % (0.0-0.8); Eosinophils # 0.2 10*3/uL (0.0-0.87); Eosinophils % 2.2 % (0.00-10.9); Hematocrit 30.4 VOL% (35.7-47.0); Hemoglobin 9.5 GM/DL (12.0-16.0); Immature Granulocytes % 2.8 %; Immature Granulocytes Absolute 0.31 #; Lymphocytes # 1.2 10*3/uL (1.4-4.0); Mean Corpuscular HGB Conc 31.3 GM/DL (32-36); Mean Corpuscular Volume 87.6 FL (87-102); Mean Platelet Volume 9.5 FL (9.6-12.0); Monocytes % 11.5 % (1.7-12.7); NRBC # 0.02 10*3/uL; Platelet Count 346 T/CUMM (130-400); Red Blood Count 3.47 MC/CUMM (3.8-5.5); Red Cell Distribution Width 17.5 % (9.3-17.3); White Blood Count 11.1 T/CUMM (4-12)
[2019-06-17 05:47] LABS: Calcium 7.7 MG/DL (8.5-10.1); Osmolality,Calculated 280.3 MOS/KG (273-304)
[2019-06-17] MEDS: INSULIN REGULAR 100 UNIT/ML SUBCUT SCH ×2 (08:32→12:04)
[2019-06-17] MEDS ORDERED: CHOLECALCIFEROL 1,000 UNIT TABLET PO SCH (09:00)
[2019-06-17] MEDS: MAGNESIUM OXIDE 400 MG TABLET PO SCH (09:12)
[2019-06-17] MEDS: FUROSEMIDE 40 MG TABLET PO SCH (09:13)
[2019-06-17] MEDS: METOPROLOL TARTRATE 100 MG TABLET PO SCH (09:13)
[2019-06-17] MEDS: DILTIAZEM CD 180 MG CAPSULE PO SCH (09:13)
[2019-06-17] MEDS: FERROUS SULFATE 325 MG TABLET PO SCH (09:13)
[2019-06-17] MEDS: ASCORBIC ACID 500 MG TABLET PO SCH (09:13)
[2019-06-17] MEDS: ALLOPURINOL 100 MG TABLET PO SCH (09:13)
[2019-06-17] MEDS: CYPROHEPTADINE 4 MG TABLET PO SCH ×2 (09:13→14:44)
[2019-06-17] MEDS: prednisoLONE ACETATE 1% OPH SUSP 5 ML BOTTLE LEFT EYE PRN (09:14)
[2019-06-17] MEDS: predniSONE 5 MG TABLET PO SCH (09:14)
[2019-06-17] MEDS: PANTOPRAZOLE 40 MG VIAL IV SCH (09:15)
[2019-06-17] MEDS: LOPERAMIDE 2 MG CAPSULE PO PRN (09:27)
[2019-06-17] MEDS: hydrOXYzine HCL 25 MG TABLET PO PRN (09:29)
[2019-06-17] MEDS: DIGOXIN 0.125 MG TABLET PO SCH (13:09)
[2019-06-17 15:32] VITALS: BP 144/70
== END 2019-06-17 15:37 | DRG 166 ==
LOC: EDBD → EDUNIT# → N.ED 11:18 → N.EDINP 14:20 → SUATTDRO 14:20 → N.TELES 15:56
PROVIDERS: ADMIT Internal Medicine; ATTEND Hospitalist

== ENCOUNTER 2019-12-02 07:52 | Inpatient (IN) ==
[2019-12-02] MEDS ORDERED: PANTOPRAZOLE 40 MG VIAL IV STA (08:10)
[2019-12-02 09:00] LABS: Basophils % 0.3 % (0.0-0.8); Eosinophils # 0.2 10*3/uL (0.0-0.87); Eosinophils % 3.1 % (0.00-10.9); Hemoglobin 10.7 GM/DL (12.0-16.0); Immature Granulocytes % 0.3 %; Immature Granulocytes Absolute 0.02 #; Lymphocytes % 32.9 % (21.3-54.2); Mean Corpuscular HGB Conc 30.6 GM/DL (32-36); Mean Corpuscular Volume 87.7 FL (87-102); Mean Platelet Volume 9.6 FL (9.6-12.0); Monocytes % 13.8 % (1.7-12.7); Neutrophils % 49.6 % (38.7-73.9); Platelet Count 211 T/CUMM (130-400); Red Blood Count 3.99 MC/CUMM (3.8-5.5); Red Cell Distribution Width 14.3 % (9.3-17.3); White Blood Count 6.2 T/CUMM (4-12)
[2019-12-02 09:11] LABS: INR 1.1; PT Patient Result 11.4 SECS (9.8-11.9)
[2019-12-02 09:24] LABS: Bilirubin,Total 0.4 MG/DL (0.2-1.0); Calcium 9.1 MG/DL (8.5-10.1); Osmolality,Calculated 280.7 MOS/KG (273-304); Total Protein 6.4 G/DL (6.4-8.3)
[2019-12-02] MEDS ORDERED: ZALEPLON 5 MG CAPSULE PO PRN (10:30)
[2019-12-02] MEDS ORDERED: GLUCAGON 1 MG VIAL IM PRN (10:30)
[2019-12-02] MEDS ORDERED: MORPHINE 4 MG/1 ML VIAL IV PRN (10:30)
[2019-12-02] MEDS ORDERED: hydrALAZINE 20 MG/1 ML VIAL IV PRN (10:30)
[2019-12-02] MEDS ORDERED: traZODone 50 MG TABLET PO PRN (10:30)
[2019-12-02] MEDS ORDERED: DEXTROSE 50% 25 GM/50 ML VIAL IV PRN (10:30)
[2019-12-02] MEDS ORDERED: prednisoLONE ACETATE 1% OPH SUSP 5 ML BOTTLE LEFT EYE PRN (10:33)
[2019-12-02] MEDS ORDERED: hydrOXYzine HCL 25 MG TABLET PO PRN (10:33)
[2019-12-02 12:36] LABS: Apearance,Urine CLEAR (Clear); Bacteria,Urine Moderate /HPF (Few); Bilirubin,Urine Negative (Negative); Blood, Urine Negative (Negative); Glucose,Urine (UA) Negative (Negative); Hyaline Casts,Urine 1 /LPF (0-3); Ketones,Urine Negative (Negative); Mucus,Urine Occasional /LPF (Occasional); Nitrite,Urine Negative (Negative); Protein,Urine Negative; RBC,Urine 1 /HPF (0-4); Squamous Epithelial Cell,Urine Occasional /HPF (0-10); Urine Color Yellow (Yellow); Urine Specific Gravity 1.012 (1.001-1.035); Urine Urobilinogen < 2.0 EU/DL (0.2-1.0); WBC,Urine 6 /HPF (0-6)
[2019-12-02 15:06] LABS: Hematocrit 32.6 VOL% (35.7-47.0); Hemoglobin 10.2 GM/DL (12.0-16.0)
[2019-12-02 16:41] LABS: Hemoglobin 10.1 GM/DL (12.0-16.0)
[2019-12-02] MEDS: INSULIN REGULAR 100 UNIT/ML SUBCUT SCH ×2 (16:42→21:27)
[2019-12-02] MEDS: CYPROHEPTADINE 4 MG TABLET PO SCH ×2 (17:17→21:27)
[2019-12-02] MEDS: metOLazone 5 MG TABLET PO SCH (17:17)
[2019-12-02] MEDS: MAGNESIUM OXIDE 400 MG TABLET PO SCH (21:26)
[2019-12-02] MEDS: PANTOPRAZOLE 40 MG VIAL IV SCH (21:26)
[2019-12-02] MEDS: METOPROLOL TARTRATE 100 MG TABLET PO SCH (21:27)
[2019-12-02] MEDS: FERROUS SULFATE 325 MG TABLET PO SCH (21:27)
[2019-12-02] MEDS: allopurinoL 100 MG TABLET PO SCH (21:27)
[2019-12-02 22:38] LABS: Hematocrit 32.4 VOL% (35.7-47.0); Hemoglobin 10.1 GM/DL (12.0-16.0)
[2019-12-03 05:31] LABS: Basophils % 0.4 % (0.0-0.8); Eosinophils # 0.2 10*3/uL (0.0-0.87); Eosinophils % 3.8 % (0.00-10.9); Hematocrit 31.1 VOL% (35.7-47.0); Lymphocytes # 1.8 10*3/uL (1.4-4.0); Lymphocytes % 37.4 % (21.3-54.2); Mean Corpuscular HGB Conc 32.2 GM/DL (32-36); Mean Corpuscular Volume 84.5 FL (87-102); Mean Platelet Volume 10.5 FL (9.6-12.0); Monocytes % 14.4 % (1.7-12.7); Platelet Count 198 T/CUMM (130-400); Red Blood Count 3.68 MC/CUMM (3.8-5.5); Red Cell Distribution Width 14.5 % (9.3-17.3); White Blood Count 4.7 T/CUMM (4-12)
[2019-12-03 07:38] LABS: Albumin 2.7 G/DL (3.4-5.0); Bilirubin,Total 1.4 MG/DL (0.2-1.0); Calcium 8.8 MG/DL (8.5-10.1); Risk Ratio 2.61; Total Protein 5.8 G/DL (6.4-8.3); VLDL CHOLESTEROL 19.2 MG/DL
[2019-12-03 07:59] LABS: Osmolality,Calculated 283.1 MOS/KG (273-304); Thyroid Stimulating Hormone 1.42 uIU/ml (0.358-3.74)
[2019-12-03] MEDS: INSULIN REGULAR 100 UNIT/ML SUBCUT SCH ×4 (08:58→21:30)
[2019-12-03] MEDS ORDERED: METOPROLOL TARTRATE 5 MG/5 ML VIAL IV ONE (09:00)
[2019-12-03] MEDS ORDERED: ESMOLOL 100 MG/10 ML VIAL IV ONE (09:00)
[2019-12-03] MEDS: LACTATED RINGERS 1,000 ML IV SCH (10:24)
[2019-12-03] MEDS: METOPROLOL TARTRATE 100 MG TABLET PO SCH ×2 (12:04→20:39)
[2019-12-03] MEDS: DILTIAZEM CD 120 MG CAPSULE PO SCH (12:04)
[2019-12-03] MEDS: FERROUS SULFATE 325 MG TABLET PO SCH ×2 (12:04→20:39)
[2019-12-03] MEDS: FUROSEMIDE 40 MG TABLET PO SCH (12:04)
[2019-12-03] MEDS: predniSONE 1 MG TABLET PO SCH (12:04)
[2019-12-03] MEDS: allopurinoL 100 MG TABLET PO SCH ×2 (12:04→20:39)
[2019-12-03] MEDS: MAGNESIUM OXIDE 400 MG TABLET PO SCH ×2 (12:04→20:39)
[2019-12-03] MEDS: metFORMIN 500 MG TABLET PO SCH (12:05)
[2019-12-03] MEDS: CYPROHEPTADINE 4 MG TABLET PO SCH ×3 (12:05→20:39)
[2019-12-03] MEDS: DIGOXIN 0.125 MG TABLET PO SCH (12:05)
[2019-12-03] MEDS: cefTRIAXone 1,000 MG in SYRINGE 1 EACH IV SCH (12:06)
[2019-12-03] MEDS: PANTOPRAZOLE 40 MG VIAL IV SCH ×2 (12:06→20:40)
[2019-12-03] MEDS: POTASSIUM CHLORIDE RIDER 10 MEQ in PREMIX 1 EACH IV PRN ×4 (12:10→16:58)
[2019-12-03] MEDS: ASCORBIC ACID 500 MG TABLET PO SCH (20:39)
[2019-12-03] MEDS: BENZONATATE 100 MG CAPSULE PO PRN (20:39)
[2019-12-04 07:14] LABS: Basophils % 0.4 % (0.0-0.8); Eosinophils # 0.2 10*3/uL (0.0-0.87); Eosinophils % 3.3 % (0.00-10.9); Hematocrit 34.9 VOL% (35.7-47.0); Hemoglobin 10.8 GM/DL (12.0-16.0); Immature Granulocytes % 0.2 %; Immature Granulocytes Absolute 0.01 #; Lymphocytes % 34.9 % (21.3-54.2); Mean Corpuscular HGB Conc 30.9 GM/DL (32-36); Mean Corpuscular Volume 86.2 FL (87-102); Mean Platelet Volume 10.4 FL (9.6-12.0); Monocytes % 11.6 % (1.7-12.7); Neutrophils % 49.6 % (38.7-73.9); Platelet Count 241 T/CUMM (130-400); Red Blood Count 4.05 MC/CUMM (3.8-5.5); Red Cell Distribution Width 14.5 % (9.3-17.3); White Blood Count 5.7 T/CUMM (4-12)
[2019-12-04 07:35] LABS: Albumin 3.1 G/DL (3.4-5.0); Bilirubin,Total 1.8 MG/DL (0.2-1.0); Calcium 9.2 MG/DL (8.5-10.1); Osmolality,Calculated 279.5 MOS/KG (273-304); Total Protein 6.7 G/DL (6.4-8.3)
[2019-12-04 07:39] LABS: % Iron Saturation 26.8 % (18-50); Ferritin 525.6 ng/ml (8-252)
[2019-12-04 08:10] LABS: Folate > 24.0 NG/ML (5.4-24.0); Vitamin B12 602 PG/ML (211-911)
[2019-12-04] MEDS ORDERED: MAGNESIUM SULF RIDER 2 GM in PREMIX 1 EACH IV ONE (08:12)
[2019-12-04] MEDS: DIGOXIN 0.125 MG TABLET PO SCH (08:20)
[2019-12-04] MEDS: DILTIAZEM CD 120 MG CAPSULE PO SCH (08:20)
[2019-12-04] MEDS: METOPROLOL TARTRATE 100 MG TABLET PO SCH ×2 (08:20→20:14)
[2019-12-04 08:39] LABS: Basophils % 0.3 % (0.0-0.8); Eosinophils # 0.2 10*3/uL (0.0-0.87); Eosinophils % 3.1 % (0.00-10.9); Hematocrit 35.2 VOL% (35.7-47.0); Hemoglobin 11.1 GM/DL (12.0-16.0); Immature Granulocytes % 0.2 %; Immature Granulocytes Absolute 0.01 #; Lymphocytes # 2.1 10*3/uL (1.4-4.0); Lymphocytes % 36.6 % (21.3-54.2); Mean Corpuscular HGB Conc 31.5 GM/DL (32-36); Mean Corpuscular Volume 86.5 FL (87-102); Mean Platelet Volume 10.9 FL (9.6-12.0); Monocytes % 11.1 % (1.7-12.7); Neutrophils % 48.7 % (38.7-73.9); Platelet Count 232 T/CUMM (130-400); Red Blood Count 4.07 MC/CUMM (3.8-5.5); Red Cell Distribution Width 14.5 % (9.3-17.3); White Blood Count 5.7 T/CUMM (4-12)
[2019-12-04] MEDS: INSULIN REGULAR 100 UNIT/ML SUBCUT SCH ×4 (08:43→21:18)
[2019-12-04 08:52] LABS: Band Neutrophils 1 % (0-10); Hypochromasia 1+; Lymphocytes 41 % (20-55); Microcytosis 1+; Ovalocytes Few; Segmented Neutrophils 45 % (50-85); Total Cells Counted 100
[2019-12-04 08:53] LABS: Platelet Estimate Normal
[2019-12-04] MEDS ORDERED: BISACODYL 5 MG TABLET PO ONE (12:00)
[2019-12-04] MEDS: predniSONE 1 MG TABLET PO SCH (13:00)
[2019-12-04] MEDS: CYPROHEPTADINE 4 MG TABLET PO SCH ×3 (13:00→20:13)
[2019-12-04] MEDS: MAGNESIUM OXIDE 400 MG TABLET PO SCH ×2 (13:01→20:13)
[2019-12-04] MEDS: BENZONATATE 100 MG CAPSULE PO PRN (13:01)
[2019-12-04] MEDS: metOLazone 5 MG TABLET PO SCH (13:01)
[2019-12-04] MEDS: FUROSEMIDE 40 MG TABLET PO SCH (13:01)
[2019-12-04] MEDS: allopurinoL 100 MG TABLET PO SCH ×2 (13:01→21:23)
[2019-12-04] MEDS: FERROUS SULFATE 325 MG TABLET PO SCH ×2 (13:01→20:14)
[2019-12-04] MEDS: ASCORBIC ACID 500 MG TABLET PO SCH ×2 (13:01→20:14)
[2019-12-04] MEDS: metFORMIN 500 MG TABLET PO SCH (13:01)
[2019-12-04] MEDS: cefTRIAXone 1,000 MG in SYRINGE 1 EACH IV SCH (13:05)
[2019-12-04] MEDS: PANTOPRAZOLE 40 MG VIAL IV SCH ×2 (13:06→20:16)
[2019-12-04] MEDS: POTASSIUM CHLORIDE RIDER 10 MEQ in PREMIX 1 EACH IV PRN ×2 (13:07→16:35)
[2019-12-04] MEDS: LACTATED RINGERS 1,000 ML IV SCH (17:35)
[2019-12-04] MEDS ORDERED: POLYETHYLENE GLYCOL POWDER 255 GM BOTTLE PO ONE (18:00)
[2019-12-05 06:43] LABS: Basophils % 0.5 % (0.0-0.8); Eosinophils # 0.3 10*3/uL (0.0-0.87); Eosinophils % 4.3 % (0.00-10.9); Hematocrit 34.9 VOL% (35.7-47.0); Hemoglobin 10.9 GM/DL (12.0-16.0); Immature Granulocytes % 0.2 %; Immature Granulocytes Absolute 0.01 #; Lymphocytes # 1.9 10*3/uL (1.4-4.0); Lymphocytes % 31.5 % (21.3-54.2); Mean Corpuscular HGB Conc 31.2 GM/DL (32-36); Mean Corpuscular Volume 86.6 FL (87-102); Mean Platelet Volume 10.3 FL (9.6-12.0); Monocytes % 11.2 % (1.7-12.7); Neutrophils % 52.3 % (38.7-73.9); Platelet Count 233 T/CUMM (130-400); Red Blood Count 4.03 MC/CUMM (3.8-5.5); Red Cell Distribution Width 14.5 % (9.3-17.3); White Blood Count 6.1 T/CUMM (4-12)
[2019-12-05 07:07] LABS: Albumin 3.3 G/DL (3.4-5.0); Bilirubin,Total 0.6 MG/DL (0.2-1.0); Calcium 9.2 MG/DL (8.5-10.1); Osmolality,Calculated 277.5 MOS/KG (273-304); Total Protein 6.7 G/DL (6.4-8.3)
[2019-12-05] MEDS: INSULIN REGULAR 100 UNIT/ML SUBCUT SCH (08:00)
[2019-12-05] MEDS ORDERED: LIDOCAINE 2% 5 ML VIAL ONE (09:00)
[2019-12-05] MEDS ORDERED: PHENYLEPHRINE 1 MG/10 ML SYRINGE IV ONE (09:00)
[2019-12-05] MEDS ORDERED: propofoL 200 MG/20 ML VIAL IV ONE (09:00)
[2019-12-05] MEDS: FERROUS SULFATE 325 MG TABLET PO SCH (11:20)
[2019-12-05] MEDS: MAGNESIUM OXIDE 400 MG TABLET PO SCH (11:21)
[2019-12-05] MEDS: CYPROHEPTADINE 4 MG TABLET PO SCH (11:21)
[2019-12-05] MEDS: ASCORBIC ACID 500 MG TABLET PO SCH (11:22)
[2019-12-05] MEDS: predniSONE 1 MG TABLET PO SCH (11:22)
[2019-12-05 12:31] VITALS: BP 147/82
== END 2019-12-05 14:01 | disposition home health service (06) | DRG 378 ==
LOC: N.ED 07:52 → N.EDINP 10:30 → N.TELEN 13:56 → N.4E 12-04 17:33
PROVIDERS: ADMIT Internal Medicine; ATTEND Internal Medicine

== ENCOUNTER 2020-06-26 08:53 | Inpatient (IN) ==
[2020-06-26] MEDS ORDERED: ACETAMINOPHEN 325 MG TABLET PO ONE (09:02)
[2020-06-26] MEDS ORDERED: SODIUM CHLORIDE 0.9% 500 ML IV STA (09:06)
[2020-06-26] MEDS ORDERED: DILTIAZEM 50 MG/10 ML VIAL IV STA (09:06)
[2020-06-26] MEDS ORDERED: METOPROLOL TARTRATE 5 MG/5 ML VIAL IV STA ×2 (09:18→10:11)
[2020-06-26 09:43] LABS: Basophils % 0.5 % (0.0-0.8); Eosinophils # 0.1 10*3/uL (0.0-0.87); Eosinophils % 0.7 % (0.00-10.9); Hematocrit 30.5 VOL% (35.7-47.0); Hemoglobin 10.1 GM/DL (12.0-16.0); Immature Granulocytes % 0.2 %; Immature Granulocytes Absolute 0.02 #; Lymphocytes # 1.2 10*3/uL (1.4-4.0); Lymphocytes % 14.3 % (21.3-54.2); Mean Corpuscular HGB Conc 33.1 GM/DL (32-36); Mean Corpuscular Volume 81.8 FL (87-102); Mean Platelet Volume 10.6 FL (9.6-12.0); Monocytes % 12.4 % (1.7-12.7); Neutrophils % 71.9 % (38.7-73.9); Platelet Count 237 T/CUMM (130-400); Red Blood Count 3.73 MC/CUMM (3.8-5.5); Red Cell Distribution Width 14.8 % (9.3-17.3); White Blood Count 8.7 T/CUMM (4-12)
[2020-06-26 09:55] LABS: PT Patient Result 11.2 SECS (9.8-11.9)
[2020-06-26 10:06] LABS: Alanine Aminotransferase 29 U/L (13-56); Alkaline Phosphatase 67 U/L (45-117); Aspartate Amino Transferase 17 U/L (0-37); Blood Urea Nitrogen 17 MG/DL (7-18); Calcium 8.9 MG/DL (8.5-10.1); Glucose 92 MG/DL (74-106); Osmolality,Calculated 276.7 MOS/KG (273-304); Total Protein 6.4 G/DL (6.4-8.3); Troponin I < 0.015 NG/ML (0.00-0.045)
[2020-06-26 10:12] LABS: Estimated Glom Filtration Rate 0 ML/MIN
[2020-06-26 10:54] LABS: Bacteria,Urine Moderate /HPF (Few); Bilirubin,Urine Negative (Negative); Blood, Urine Small mg/dL (Negative); Glucose,Urine (UA) Negative (Negative); Ketones,Urine Negative (Negative); Mucus,Urine Occasional /LPF (Occasional); Nitrite,Urine Negative (Negative); Protein,Urine 100 MG/DL; RBC,Urine 2 /HPF (0-4); Squamous Epithelial Cell,Urine Occasional /HPF (0-10); Urine Appearance Slightly Hazy (Clear); Urine Color Yellow (Yellow); Urine Specific Gravity 1.016 (1.001-1.035); Urine Urobilinogen < 2.0 EU/DL (0.2-1.0); WBC,Urine 4 /HPF (0-6)
[2020-06-26] MEDS ORDERED: FUROSEMIDE 40 MG/4 ML VIAL IV STA (11:02)
[2020-06-26] MEDS ORDERED: ASPIRIN 325 MG TABLET PO STA (11:02)
[2020-06-26] MEDS ORDERED: ONDANSETRON 4 MG/2 ML VIAL IV PRN (13:00)
[2020-06-26] MEDS ORDERED: MAGNESIUM SULF RIDER 2 GM in PREMIX 1 EACH IV PRN (13:00)
[2020-06-26] MEDS ORDERED: DEXTROSE 50% 25 GM/50 ML VIAL IV PRN (13:00)
[2020-06-26] MEDS ORDERED: DOCUSATE SODIUM 100 MG CAPSULE PO PRN (13:00)
[2020-06-26] MEDS ORDERED: GLUCAGON 1 MG VIAL IM PRN (13:00)
[2020-06-26] MEDS ORDERED: MAGNESIUM SULF RIDER 4 GM in PREMIX 1 EACH IV PRN (13:00)
[2020-06-26] MEDS: ALBUTEROL/IPRATROPIUM 3 ML NEB RESP TX SCH ×2 (13:54→19:29)
[2020-06-26 15:01] LABS: Calcium 8.9 MG/DL (8.5-10.1); Osmolality,Calculated 273.8 MOS/KG (273-304)
[2020-06-26] MEDS: SODIUM CHLORIDE 0.9% 1,000 ML IV SCH (15:21)
[2020-06-26] MEDS: FUROSEMIDE 40 MG/4 ML VIAL IV SCH (15:24)
[2020-06-26] MEDS: metFORMIN 500 MG TABLET PO SCH (15:27)
[2020-06-26] MEDS: ASPIRIN CHEW 81 MG TABLET PO SCH (15:27)
[2020-06-26] MEDS: ASCORBIC ACID 500 MG TABLET PO SCH ×2 (15:27→21:17)
[2020-06-26] MEDS: PANTOPRAZOLE 40 MG TABLET PO SCH (15:27)
[2020-06-26] MEDS: DIGOXIN 0.125 MG TABLET PO SCH (15:27)
[2020-06-26] MEDS: MAGNESIUM OXIDE 400 MG TABLET PO SCH ×2 (15:27→21:18)
[2020-06-26] MEDS: allopurinoL 100 MG TABLET PO SCH ×2 (15:28→21:18)
[2020-06-26] MEDS: METOPROLOL TARTRATE 100 MG TABLET PO SCH ×2 (15:28→21:17)
[2020-06-26] MEDS: INSULIN REGULAR 100 UNIT/ML SUBCUT SCH ×2 (16:14→21:18)
[2020-06-26] MEDS: guaiFENesin/DM ER 600-30 MG TABLET PO PRN (16:36)
[2020-06-26] MEDS: hydrOXYzine HCL 25 MG TABLET PO PRN (16:36)
[2020-06-26] MEDS ORDERED: prednisoLONE ACETATE 1% OPH SUSP 5 ML BOTTLE LEFT EYE PRN (17:00)
[2020-06-26] MEDS: DILTIAZEM CD 120 MG CAPSULE PO SCH (21:17)
[2020-06-27] MEDS: ALBUTEROL/IPRATROPIUM 3 ML NEB RESP TX SCH ×4 (00:15→20:36)
[2020-06-27] MEDS: hydrOXYzine HCL 25 MG TABLET PO PRN (01:59)
[2020-06-27] MEDS: ACETAMINOPHEN 325 MG TABLET PO PRN ×2 (06:16→18:26)
[2020-06-27 07:14] LABS: Basophils % 0.3 % (0.0-0.8); Eosinophils # 0.1 10*3/uL (0.0-0.87); Eosinophils % 2.1 % (0.00-10.9); Hematocrit 31.4 VOL% (35.7-47.0); Hemoglobin 10.1 GM/DL (12.0-16.0); Immature Granulocytes % 0.4 %; Immature Granulocytes Absolute 0.03 #; Lymphocytes # 1.1 10*3/uL (1.4-4.0); Lymphocytes % 16.7 % (21.3-54.2); Mean Corpuscular HGB Conc 32.2 GM/DL (32-36); Mean Corpuscular Volume 83.5 FL (87-102); Mean Platelet Volume 10.6 FL (9.6-12.0); Neutrophils % 68.5 % (38.7-73.9); Platelet Count 220 T/CUMM (130-400); Red Blood Count 3.76 MC/CUMM (3.8-5.5); Red Cell Distribution Width 14.9 % (9.3-17.3); White Blood Count 6.8 T/CUMM (4-12)
[2020-06-27 07:26] LABS: Calcium 8.7 MG/DL (8.5-10.1); Osmolality,Calculated 279.4 MOS/KG (273-304)
[2020-06-27] MEDS: ASPIRIN CHEW 81 MG TABLET PO SCH (08:33)
[2020-06-27] MEDS: MAGNESIUM OXIDE 400 MG TABLET PO SCH ×2 (08:33→21:26)
[2020-06-27] MEDS: INSULIN REGULAR 100 UNIT/ML SUBCUT SCH ×4 (08:33→21:27)
[2020-06-27] MEDS: METOPROLOL TARTRATE 100 MG TABLET PO SCH (08:33)
[2020-06-27] MEDS: DIGOXIN 0.125 MG TABLET PO SCH (08:33)
[2020-06-27] MEDS: metFORMIN 500 MG TABLET PO SCH (08:33)
[2020-06-27] MEDS: guaiFENesin/DM ER 600-30 MG TABLET PO PRN (08:33)
[2020-06-27] MEDS: PANTOPRAZOLE 40 MG TABLET PO SCH (08:34)
[2020-06-27] MEDS: FUROSEMIDE 40 MG/4 ML VIAL IV SCH ×2 (08:34→17:00)
[2020-06-27] MEDS: ASCORBIC ACID 500 MG TABLET PO SCH ×2 (08:34→21:26)
[2020-06-27] MEDS: allopurinoL 100 MG TABLET PO SCH ×2 (08:34→21:26)
[2020-06-27] MEDS: SODIUM CHLORIDE 0.9% 1,000 ML IV SCH (19:54)
[2020-06-27] MEDS: DILTIAZEM CD 120 MG CAPSULE PO SCH (21:26)
[2020-06-27] MEDS: METOPROLOL SUCCINATE XL 25 MG TABLET PO SCH (21:26)
[2020-06-28] MEDS: ALBUTEROL/IPRATROPIUM 3 ML NEB RESP TX SCH ×4 (00:53→19:52)
[2020-06-28 06:32] LABS: Basophils % 0.5 % (0.0-0.8); Eosinophils # 0.1 10*3/uL (0.0-0.87); Eosinophils % 2.4 % (0.00-10.9); Hematocrit 33.2 VOL% (35.7-47.0); Hemoglobin 10.8 GM/DL (12.0-16.0); Immature Granulocytes % 0.2 %; Immature Granulocytes Absolute 0.01 #; Lymphocytes # 1.3 10*3/uL (1.4-4.0); Lymphocytes % 22.8 % (21.3-54.2); Mean Corpuscular HGB Conc 32.5 GM/DL (32-36); Mean Corpuscular Volume 81.6 FL (87-102); Mean Platelet Volume 11.1 FL (9.6-12.0); Monocytes % 14.6 % (1.7-12.7); Neutrophils % 59.5 % (38.7-73.9); Platelet Count 254 T/CUMM (130-400); Red Blood Count 4.07 MC/CUMM (3.8-5.5); Red Cell Distribution Width 14.6 % (9.3-17.3); White Blood Count 5.9 T/CUMM (4-12)
[2020-06-28 07:16] LABS: Calcium 8.8 MG/DL (8.5-10.1)
[2020-06-28] MEDS: INSULIN REGULAR 100 UNIT/ML SUBCUT SCH ×4 (08:43→21:28)
[2020-06-28] MEDS: SPIRONOLACTONE 25 MG TABLET PO SCH (08:46)
[2020-06-28] MEDS: ASPIRIN CHEW 81 MG TABLET PO SCH (08:46)
[2020-06-28] MEDS: MULTIVITAMIN (CENTRUM) TABLET PO SCH (08:46)
[2020-06-28] MEDS: DIGOXIN 0.125 MG TABLET PO SCH (08:46)
[2020-06-28] MEDS: ASCORBIC ACID 500 MG TABLET PO SCH ×3 (08:47→21:33)
[2020-06-28] MEDS: metFORMIN 500 MG TABLET PO SCH (08:47)
[2020-06-28] MEDS: METOPROLOL SUCCINATE XL 25 MG TABLET PO SCH (08:47)
[2020-06-28] MEDS: FUROSEMIDE 40 MG/4 ML VIAL IV SCH ×2 (08:47→17:28)
[2020-06-28] MEDS: MAGNESIUM OXIDE 400 MG TABLET PO SCH ×3 (08:47→21:33)
[2020-06-28] MEDS: allopurinoL 100 MG TABLET PO SCH ×3 (08:47→21:34)
[2020-06-28] MEDS: PANTOPRAZOLE 40 MG TABLET PO SCH (08:51)
[2020-06-28] MEDS ORDERED: METOPROLOL SUCCINATE XL 25 MG TABLET PO ONE (10:18)
[2020-06-28] MEDS ORDERED: DILTIAZEM CD 180 MG CAPSULE PO SCH (21:00)
[2020-06-28] MEDS: DILTIAZEM CD 120 MG CAPSULE PO SCH ×2 (21:27→21:33)
[2020-06-28] MEDS: METOPROLOL SUCCINATE XL 100 MG TABLET PO SCH ×2 (21:27→21:33)
[2020-06-28] MEDS ORDERED: POTASSIUM CHLORIDE 20 MEQ TABLET PO PRN (21:57)
[2020-06-29] MEDS: ALBUTEROL/IPRATROPIUM 3 ML NEB RESP TX SCH ×4 (00:34→18:33)
[2020-06-29 05:36] LABS: Basophils % 0.6 % (0.0-0.8); Eosinophils # 0.2 10*3/uL (0.0-0.87); Eosinophils % 2.5 % (0.00-10.9); Hematocrit 32.8 VOL% (35.7-47.0); Hemoglobin 10.7 GM/DL (12.0-16.0); Immature Granulocytes % 0.3 %; Immature Granulocytes Absolute 0.02 #; Lymphocytes # 1.5 10*3/uL (1.4-4.0); Lymphocytes % 23.8 % (21.3-54.2); Mean Corpuscular HGB Conc 32.6 GM/DL (32-36); Mean Corpuscular Volume 82.8 FL (87-102); Mean Platelet Volume 9.7 FL (9.6-12.0); Monocytes % 15.9 % (1.7-12.7); Neutrophils % 56.9 % (38.7-73.9); Platelet Count 249 T/CUMM (130-400); Red Blood Count 3.96 MC/CUMM (3.8-5.5); Red Cell Distribution Width 14.6 % (9.3-17.3); White Blood Count 6.3 T/CUMM (4-12)
[2020-06-29 05:52] LABS: Calcium 8.9 MG/DL (8.5-10.1); Osmolality,Calculated 277.4 MOS/KG (273-304)
[2020-06-29 06:11] LABS: Eosinophils 1 % (0-10); Hypochromasia 1+; Lymphocytes 30 % (20-55); Platelet Estimate Adequate; Segmented Neutrophils 53 % (50-85); Total Cells Counted 100
[2020-06-29 06:12] LABS: Ovalocytes Slight
[2020-06-29] MEDS: INSULIN REGULAR 100 UNIT/ML SUBCUT SCH ×4 (08:01→22:09)
[2020-06-29] MEDS: FUROSEMIDE 40 MG/4 ML VIAL IV SCH ×2 (08:51→15:57)
[2020-06-29] MEDS: MULTIVITAMIN (CENTRUM) TABLET PO SCH (08:52)
[2020-06-29] MEDS: MAGNESIUM OXIDE 400 MG TABLET PO SCH ×2 (08:52→22:08)
[2020-06-29] MEDS: METOPROLOL SUCCINATE XL 100 MG TABLET PO SCH ×2 (08:52→22:09)
[2020-06-29] MEDS: PANTOPRAZOLE 40 MG TABLET PO SCH (08:52)
[2020-06-29] MEDS: ASCORBIC ACID 500 MG TABLET PO SCH ×2 (08:52→22:07)
[2020-06-29] MEDS: DIGOXIN 0.125 MG TABLET PO SCH (08:52)
[2020-06-29] MEDS: ASPIRIN CHEW 81 MG TABLET PO SCH (08:52)
[2020-06-29] MEDS: allopurinoL 100 MG TABLET PO SCH ×2 (08:52→22:07)
[2020-06-29] MEDS: DILTIAZEM CD 120 MG CAPSULE PO SCH (08:52)
[2020-06-29] MEDS: SPIRONOLACTONE 25 MG TABLET PO SCH (08:53)
[2020-06-29] MEDS: metFORMIN 500 MG TABLET PO SCH (08:53)
[2020-06-29] MEDS ORDERED: DILTIAZEM 60 MG TABLET PO ONE (10:29)
[2020-06-29] MEDS: DILTIAZEM CD 180 MG CAPSULE PO SCH (22:08)
[2020-06-30] MEDS: ALBUTEROL/IPRATROPIUM 3 ML NEB RESP TX SCH ×3 (00:40→12:49)
[2020-06-30] MEDS: INSULIN REGULAR 100 UNIT/ML SUBCUT SCH ×2 (08:32→12:44)
[2020-06-30] MEDS: metFORMIN 500 MG TABLET PO SCH (08:34)
[2020-06-30] MEDS: allopurinoL 100 MG TABLET PO SCH (08:34)
[2020-06-30] MEDS: ASPIRIN CHEW 81 MG TABLET PO SCH (08:34)
[2020-06-30] MEDS: METOPROLOL SUCCINATE XL 100 MG TABLET PO SCH (08:34)
[2020-06-30] MEDS: ASCORBIC ACID 500 MG TABLET PO SCH (08:34)
[2020-06-30] MEDS: DIGOXIN 0.125 MG TABLET PO SCH (08:34)
[2020-06-30] MEDS: MULTIVITAMIN (CENTRUM) TABLET PO SCH (08:34)
[2020-06-30] MEDS: MAGNESIUM OXIDE 400 MG TABLET PO SCH (08:34)
[2020-06-30] MEDS: DILTIAZEM CD 180 MG CAPSULE PO SCH (08:35)
[2020-06-30] MEDS: SPIRONOLACTONE 25 MG TABLET PO SCH (08:35)
[2020-06-30] MEDS: PANTOPRAZOLE 40 MG TABLET PO SCH (08:35)
[2020-06-30] MEDS: FUROSEMIDE 40 MG/4 ML VIAL IV SCH (08:36)
[2020-06-30] MEDS ORDERED: lisinopriL 2.5 MG TABLET PO SCH (10:00)
[2020-06-30 11:44] VITALS: BP 114/89
== END 2020-06-30 14:13 | disposition home health service (06) | DRG 291 ==
LOC: EDUNIT# → EDBD → N.ED 08:53 → SUATTDRO 11:14 → N.EDINP 11:14 → N.TELEN 12:41
PROVIDERS: ADMIT Family Medicine; ATTEND Internal Medicine

== ENCOUNTER 2020-11-04 07:02 | Observation (INO) ==
[2020-11-04] MEDS ORDERED: ONDANSETRON 4 MG/2 ML VIAL IV STA (07:05)
[2020-11-04] MEDS ORDERED: SODIUM CHLORIDE 0.9% 1,000 ML IV STA ×2 (07:05→08:58)
[2020-11-04 07:20] LABS: Basophils % 0.3 % (0.0-0.8); Eosinophils # 0.1 10*3/uL (0.0-0.87); Eosinophils % 1.5 % (0.00-10.9); Hematocrit 33.9 VOL% (35.7-47.0); Hemoglobin 10.2 GM/DL (12.0-16.0); Immature Granulocytes % 0.4 %; Immature Granulocytes Absolute 0.03 #; Lymphocytes # 1.1 10*3/uL (1.4-4.0); Lymphocytes % 14.4 % (21.3-54.2); Mean Corpuscular HGB Conc 30.1 GM/DL (32-36); Mean Platelet Volume 8.5 FL (9.6-12.0); Monocytes % 8.5 % (1.7-12.7); Neutrophils % 74.9 % (38.7-73.9); Platelet Count 298 T/CUMM (130-400); Red Blood Count 3.94 MC/CUMM (3.8-5.5); Red Cell Distribution Width 16.2 % (9.3-17.3); White Blood Count 7.8 T/CUMM (4-12)
[2020-11-04] MEDS: LOPERAMIDE 2 MG CAPSULE PO STA ×2 (07:27→11:00)
[2020-11-04 07:43] LABS: Calcium 7.5 MG/DL (8.5-10.1); Osmolality,Calculated 281.1 MOS/KG (273-304); Potassium 5.6 MMOL/L (3.5-5.1)
[2020-11-04 08:38] LABS: Amorphous Crystals,Urine Few /HPF (Few); Bacteria,Urine Moderate /HPF (Few); Bilirubin,Urine Negative (Negative); Blood, Urine Negative (Negative); Glucose,Urine (UA) Negative (Negative); Hyaline Casts,Urine 32 /LPF (0-3); Ketones,Urine Negative (Negative); Mucus,Urine Few /LPF (Occasional); Nitrite,Urine Negative (Negative); Protein,Urine Negative; Squamous Epithelial Cell,Urine Occasional /HPF (0-10); Urine Appearance Slightly Hazy (Clear); Urine Color Yellow (Yellow); Urine Specific Gravity 1.013 (1.001-1.035); Urine Urobilinogen < 2.0 EU/DL (0.2-1.0)
[2020-11-04] MEDS ORDERED: ALUM/MAG/SIMETH/LIDO VISC 1:1 30 ML BOTTLE PO ONE (09:24)
[2020-11-04] MEDS ORDERED: ALUM/MAG/SIMETH/LIDO VISC 1:1 30 ML BOTTLE PO STA (09:26)
[2020-11-04] MEDS ORDERED: HydrOXYzine PAMOATE 25 MG CAPSULE ONE (10:02)
[2020-11-04] MEDS ORDERED: HydrOXYzine PAMOATE 50 MG CAPSULE PO STA (10:08)
[2020-11-04 10:36] LABS: Calcium 6.5 MG/DL (8.5-10.1); Osmolality,Calculated 287.4 MOS/KG (273-304); Potassium 5.3 MMOL/L (3.5-5.1)
[2020-11-04] MEDS: SODIUM CHLORIDE 0.45% 1,000 ML IV SCH (11:41)
[2020-11-04] MEDS ORDERED: ONDANSETRON 4 MG/2 ML VIAL IV PRN (12:15)
[2020-11-04] MEDS ORDERED: DEXTROSE 50% 25 GM/50 ML VIAL IV PRN ×3 (12:15→12:31)
[2020-11-04] MEDS ORDERED: ACETAMINOPHEN 325 MG TABLET PO PRN (12:15)
[2020-11-04] MEDS ORDERED: GLUCAGON 1 MG VIAL IM PRN ×3 (12:15→12:31)
[2020-11-04] MEDS: INSULIN LISPRO 100 UNIT/ML SUBCUT SCH ×2 (17:18→22:00)
[2020-11-05 05:22] LABS: Basophils % 0.4 % (0.0-0.8); Eosinophils # 0.3 10*3/uL (0.0-0.87); Eosinophils % 4.9 % (0.00-10.9); Hematocrit 28.8 VOL% (35.7-47.0); Hemoglobin 8.9 GM/DL (12.0-16.0); Immature Granulocytes % 0.4 %; Immature Granulocytes Absolute 0.02 #; Lymphocytes # 1.4 10*3/uL (1.4-4.0); Lymphocytes % 27.1 % (21.3-54.2); Mean Corpuscular HGB Conc 30.9 GM/DL (32-36); Mean Corpuscular Volume 86.5 FL (87-102); Mean Platelet Volume 9.1 FL (9.6-12.0); Monocytes % 11.9 % (1.7-12.7); Neutrophils % 55.3 % (38.7-73.9); Platelet Count 244 T/CUMM (130-400); Red Blood Count 3.33 MC/CUMM (3.8-5.5); Red Cell Distribution Width 16.4 % (9.3-17.3); White Blood Count 5.3 T/CUMM (4-12)
[2020-11-05 05:40] LABS: Calcium 6.6 MG/DL (8.5-10.1); Osmolality,Calculated 282.4 MOS/KG (273-304); Potassium 5.5 MMOL/L (3.5-5.1)
[2020-11-05] MEDS: SODIUM CHLORIDE 0.45% 1,000 ML IV SCH (07:10)
[2020-11-05] MEDS: INSULIN LISPRO 100 UNIT/ML SUBCUT SCH ×3 (07:32→16:08)
[2020-11-05] MEDS ORDERED: SODIUM POLYSTYRENE SULFATE 15 GM/60 ML BOTTLE PO STA (08:29)
[2020-11-05] MEDS ORDERED: INSULIN REGULAR 100 UNIT/ML IV ONE (09:41)
[2020-11-05] MEDS ORDERED: DEXTROSE 50% 25 GM/50 ML VIAL IV ONE (09:42)
[2020-11-05] MEDS ORDERED: INSULIN REGULAR 10 UNIT, CALCIUM GLUCONATE 1,000 MG in DEXTROSE 10% 250 ML IV ONE (10:00)
[2020-11-05 14:24] LABS: Calcium 7.1 MG/DL (8.5-10.1); Osmolality,Calculated 278.5 MOS/KG (273-304); Potassium 5.1 MMOL/L (3.5-5.1)
[2020-11-05 16:05] VITALS: BP 112/65
== END 2020-11-05 17:38 | disposition home health service (06) ==
LOC: EDBD → EDSEX → EDUNIT# → N.ED 07:02 → N.EDINP 07:02 → N.5E 15:45
PROVIDERS: ADMIT Internal Medicine; ATTEND Internal Medicine

== ENCOUNTER 2021-06-03 06:19 | Inpatient (IN) ==
[2021-06-03] MEDS ORDERED: SODIUM CHLORIDE 0.9% 1,000 ML IV STA ×2 (06:37→08:47)
[2021-06-03] MEDS ORDERED: KETOROLAC 30 MG/1 ML VIAL IV STA (06:37)
[2021-06-03] MEDS ORDERED: HYDROmorphone 2 MG/1 ML VIAL IV STA (06:37)
[2021-06-03] MEDS ORDERED: ONDANSETRON 4 MG/2 ML VIAL IV STA (06:37)
[2021-06-03 06:55] LABS: Basophils # 0.1 10*3/uL (0.0-0.2); Basophils % 0.2 % (0.0-0.8); Eosinophils # 0.1 10*3/uL (0.0-0.87); Eosinophils % 0.4 % (0.00-10.9); Hematocrit 28.9 VOL% (35.7-47.0); Immature Granulocytes % 1.2 %; Immature Granulocytes Absolute 0.26 #; Lymphocytes % 4.9 % (21.3-54.2); Mean Corpuscular HGB Conc 31.1 GM/DL (32-36); Mean Corpuscular Volume 84.5 FL (87-102); Mean Platelet Volume 8.7 FL (9.6-12.0); Monocytes % 6.6 % (1.7-12.7); Neutrophils % 86.7 % (38.7-73.9); Platelet Count 274 T/CUMM (130-400); Red Blood Count 3.42 MC/CUMM (3.8-5.5); Red Cell Distribution Width 16.1 % (9.3-17.3); White Blood Count 21.4 T/CUMM (4-12)
[2021-06-03 07:13] LABS: Band Neutrophils 1 % (0-10); Hypochromasia 1+; Lymphocytes 3 % (20-55); Microcytosis 1+; Ovalocytes Slight; Platelet Estimate Adequate; Segmented Neutrophils 93 % (50-85); Total Cells Counted 100
[2021-06-03 07:19] LABS: Albumin 3.5 G/DL (3.4-5.0); Bilirubin,Total 0.4 MG/DL (0.20-1.00); Calcium 9.4 MG/DL (8.5-10.1); Osmolality,Calculated 292.8 MOS/KG (273-304); Potassium 5.3 MMOL/L (3.5-5.1); Total Protein 7.1 G/DL (6.4-8.2)
[2021-06-03 08:38] LABS: Bacteria,Urine Moderate /HPF (Few); Bilirubin,Urine Negative (Negative); Blood, Urine Negative (Negative); Glucose,Urine (UA) Negative (Negative); Hyaline Casts,Urine 1 /LPF (0-3); Ketones,Urine Negative (Negative); Mucus,Urine Occasional /LPF (Occasional); Nitrite,Urine Negative (Negative); Protein,Urine Negative; Squamous Epithelial Cell,Urine Occasional /HPF (0-10); Urine Appearance CLEAR (Clear); Urine Color Yellow (Yellow); Urine Specific Gravity 1.012 (1.001-1.035); Urine Urobilinogen < 2.0 EU/DL (0.2-1.0)
[2021-06-03] MEDS ORDERED: cefTRIAXone 1,000 MG VIAL IM SCH (09:30)
[2021-06-03] MEDS ORDERED: DEXTROSE 50% 25 GM/50 ML SYRINGE IV PRN (09:42)
[2021-06-03] MEDS ORDERED: hydrALAZINE 20 MG/1 ML VIAL IV PRN (09:42)
[2021-06-03] MEDS ORDERED: ONDANSETRON 4 MG/2 ML VIAL IV PRN (09:42)
[2021-06-03] MEDS ORDERED: GLUCAGON 1 MG VIAL IM PRN (09:42)
[2021-06-03] MEDS ORDERED: ACETAMINOPHEN 325 MG TABLET PO PRN (09:42)
[2021-06-03] MEDS ORDERED: SODIUM CHLORIDE 0.9% 200 ML IV ONE (10:06)
[2021-06-03] MEDS: cefTRIAXone 1,000 MG VIAL IV SCH (10:10)
[2021-06-03] MEDS: AZITHROMYCIN INJ 500 MG in SODIUM CHLORIDE 0.9% 250 ML IV SCH (12:00)
[2021-06-03] MEDS: INSULIN LISPRO 100 UNIT/ML SUBCUT SCH ×2 (12:25→17:40)
[2021-06-03] MEDS: ALBUTEROL/IPRATROPIUM 3 ML NEB RESP TX SCH ×2 (12:39→20:12)
[2021-06-03] MEDS: HEPARIN 5,000 UNIT/1 ML VIAL SUBCUT SCH (14:30)
[2021-06-04] MEDS: ALBUTEROL/IPRATROPIUM 3 ML NEB RESP TX SCH ×4 (00:35→19:45)
[2021-06-04] MEDS: HEPARIN 5,000 UNIT/1 ML VIAL SUBCUT SCH ×3 (00:36→22:53)
[2021-06-04 04:21] LABS: Basophils % 0.2 % (0.0-0.8); Eosinophils # 0.2 10*3/uL (0.0-0.87); Eosinophils % 1.4 % (0.00-10.9); Hematocrit 25.4 VOL% (35.7-47.0); Hemoglobin 7.8 GM/DL (12.0-16.0); Immature Granulocytes % 0.7 %; Immature Granulocytes Absolute 0.09 #; Lymphocytes # 1.3 10*3/uL (1.4-4.0); Mean Corpuscular HGB Conc 30.7 GM/DL (32-36); Mean Corpuscular Volume 83.3 FL (87-102); Mean Platelet Volume 9.1 FL (9.6-12.0); Monocytes % 8.1 % (1.7-12.7); Neutrophils % 79.6 % (38.7-73.9); Platelet Count 254 T/CUMM (130-400); Red Blood Count 3.05 MC/CUMM (3.8-5.5); Red Cell Distribution Width 15.9 % (9.3-17.3); White Blood Count 12.9 T/CUMM (4-12)
[2021-06-04 04:42] LABS: Calcium 8.9 MG/DL (8.5-10.1); Osmolality,Calculated 300.7 MOS/KG (273-304); Potassium 4.8 MMOL/L (3.5-5.1)
[2021-06-04] MEDS: INSULIN LISPRO 100 UNIT/ML SUBCUT SCH ×5 (06:00→20:54)
[2021-06-04 09:56] LABS: % Iron Saturation 10.1 % (18-50); Ferritin 433.2 ng/mL (8-252)
[2021-06-04 09:58] LABS: Folate 4.48 NG/ML (5.38-24.0)
[2021-06-04] MEDS: cefTRIAXone 1,000 MG VIAL IV SCH (09:58)
[2021-06-04] MEDS: PANTOPRAZOLE 40 MG TABLET PO SCH (09:58)
[2021-06-04] MEDS: AZITHROMYCIN INJ 500 MG in SODIUM CHLORIDE 0.9% 250 ML IV SCH (11:04)
[2021-06-04] MEDS ORDERED: ALBUTEROL/IPRATROPIUM 3 ML NEB RESP TX PRN (13:51)
[2021-06-04] MEDS ORDERED: prednisoLONE ACETATE 1% OPH SUSP 5 ML BOTTLE LEFT EYE PRN (13:51)
[2021-06-04] MEDS ORDERED: FERRIC CARBOXYMALTOSE 750 MG in SODIUM CHLORIDE 0.9% 100 ML IV ONE (13:53)
[2021-06-04] MEDS ORDERED: ERGOCALCIFEROL 50,000 UNIT CAPSULE PO SCH (14:30)
[2021-06-04] MEDS: FERRIC GLUCONATE COMPLEX 125 MG in SODIUM CHLORIDE 0.9% 100 ML IV SCH (17:51)
[2021-06-04] MEDS ORDERED: METOPROLOL TARTRATE 5 MG/5 ML VIAL IV ONE (20:23)
[2021-06-04] MEDS: allopurinoL 100 MG TABLET PO SCH (20:53)
[2021-06-04] MEDS: ASCORBIC ACID 500 MG TABLET PO SCH (20:53)
[2021-06-04] MEDS: MAGNESIUM OXIDE 400 MG TABLET PO SCH (20:53)
[2021-06-04] MEDS ORDERED: DILTIAZEM CD 180 MG CAPSULE PO SCH (21:00)
[2021-06-04] MEDS: hydrOXYzine HCL 25 MG TABLET PO PRN (21:05)
[2021-06-05] MEDS ORDERED: DILTIAZEM CD 180 MG CAPSULE PO ONE ×2 (00:02→00:30)
[2021-06-05] MEDS: ALBUTEROL/IPRATROPIUM 3 ML NEB RESP TX SCH ×3 (00:37→15:16)
[2021-06-05] MEDS: INSULIN LISPRO 100 UNIT/ML SUBCUT SCH ×4 (08:09→23:40)
[2021-06-05] MEDS: FERRIC GLUCONATE COMPLEX 125 MG in SODIUM CHLORIDE 0.9% 100 ML IV SCH (10:09)
[2021-06-05] MEDS: PANTOPRAZOLE 40 MG TABLET PO SCH (10:09)
[2021-06-05] MEDS: ASPIRIN CHEW 81 MG TABLET PO SCH (10:09)
[2021-06-05] MEDS: DILTIAZEM CD 180 MG CAPSULE PO SCH ×2 (10:09→23:31)
[2021-06-05] MEDS: MAGNESIUM OXIDE 400 MG TABLET PO SCH ×3 (10:09→23:37)
[2021-06-05] MEDS: FOLIC ACID 1 MG TABLET PO SCH (10:09)
[2021-06-05] MEDS: allopurinoL 100 MG TABLET PO SCH ×3 (10:09→23:38)
[2021-06-05] MEDS: ASCORBIC ACID 500 MG TABLET PO SCH ×3 (10:09→23:37)
[2021-06-05] MEDS: predniSONE 1 MG TABLET PO SCH (10:12)
[2021-06-05] MEDS ORDERED: METOPROLOL SUCCINATE XL 100 MG TABLET PO ONE (10:37)
[2021-06-05] MEDS: HEPARIN 5,000 UNIT/1 ML VIAL SUBCUT SCH ×3 (11:19→23:39)
[2021-06-05] MEDS: AZITHROMYCIN INJ 500 MG in SODIUM CHLORIDE 0.9% 250 ML IV SCH (11:20)
[2021-06-05 11:29] LABS: Basophils % 0.2 % (0.0-0.8); Eosinophils # 0.1 10*3/uL (0.0-0.87); Eosinophils % 1.5 % (0.00-10.9); Hematocrit 23.3 VOL% (35.7-47.0); Hemoglobin 7.3 GM/DL (12.0-16.0); Immature Granulocytes % 0.5 %; Immature Granulocytes Absolute 0.05 #; Lymphocytes # 0.9 10*3/uL (1.4-4.0); Lymphocytes % 9.8 % (21.3-54.2); Mean Corpuscular HGB Conc 31.3 GM/DL (32-36); Mean Corpuscular Volume 82.3 FL (87-102); Mean Platelet Volume 10.3 FL (9.6-12.0); Monocytes % 8.4 % (1.7-12.7); Neutrophils % 79.6 % (38.7-73.9); Platelet Count 251 T/CUMM (130-400); Red Blood Count 2.83 MC/CUMM (3.8-5.5); Red Cell Distribution Width 15.9 % (9.3-17.3); White Blood Count 9.2 T/CUMM (4-12)
[2021-06-05 11:47] LABS: Osmolality,Calculated 284.3 MOS/KG (273-304); Potassium 4.9 MMOL/L (3.5-5.1)
[2021-06-05] MEDS: cefTRIAXone 1,000 MG in SODIUM CHLORIDE 0.9% 100 ML IV SCH (12:33)
[2021-06-05] MEDS: LEVALBUTEROL 1.25 MG/3 ML NEB RESP TX SCH ×2 (16:45→19:45)
[2021-06-05] MEDS: METOPROLOL SUCCINATE XL 100 MG TABLET PO SCH ×2 (22:57→23:36)
[2021-06-05] MEDS: hydrOXYzine HCL 25 MG TABLET PO PRN (22:57)
[2021-06-06] MEDS: LEVALBUTEROL 1.25 MG/3 ML NEB RESP TX SCH ×3 (03:42→11:09)
[2021-06-06 06:07] LABS: Basophils % 0.3 % (0.0-0.8); Eosinophils # 0.2 10*3/uL (0.0-0.87); Eosinophils % 2.2 % (0.00-10.9); Hematocrit 26.4 VOL% (35.7-47.0); Immature Granulocytes % 0.6 %; Immature Granulocytes Absolute 0.05 #; Lymphocytes # 1.1 10*3/uL (1.4-4.0); Lymphocytes % 11.8 % (21.3-54.2); Mean Corpuscular HGB Conc 30.3 GM/DL (32-36); Mean Corpuscular Volume 84.1 FL (87-102); Mean Platelet Volume 10.1 FL (9.6-12.0); Monocytes % 9.4 % (1.7-12.7); Neutrophils % 75.7 % (38.7-73.9); Platelet Count 287 T/CUMM (130-400); Red Blood Count 3.14 MC/CUMM (3.8-5.5); Red Cell Distribution Width 15.9 % (9.3-17.3); White Blood Count 8.9 T/CUMM (4-12)
[2021-06-06 06:25] LABS: Calcium 9.3 MG/DL (8.5-10.1); Osmolality,Calculated 281.1 MOS/KG (273-304); Potassium 5.1 MMOL/L (3.5-5.1)
[2021-06-06] MEDS: INSULIN LISPRO 100 UNIT/ML SUBCUT SCH ×2 (09:12→12:37)
[2021-06-06] MEDS: PANTOPRAZOLE 40 MG TABLET PO SCH (09:39)
[2021-06-06] MEDS: allopurinoL 100 MG TABLET PO SCH (09:39)
[2021-06-06] MEDS: MAGNESIUM OXIDE 400 MG TABLET PO SCH (09:39)
[2021-06-06] MEDS: ASCORBIC ACID 500 MG TABLET PO SCH (09:39)
[2021-06-06] MEDS: FOLIC ACID 1 MG TABLET PO SCH (09:39)
[2021-06-06] MEDS: ASPIRIN CHEW 81 MG TABLET PO SCH (09:39)
[2021-06-06] MEDS: DILTIAZEM CD 180 MG CAPSULE PO SCH (09:41)
[2021-06-06] MEDS: METOPROLOL SUCCINATE XL 100 MG TABLET PO SCH (09:41)
[2021-06-06] MEDS: HEPARIN 5,000 UNIT/1 ML VIAL SUBCUT SCH (09:42)
[2021-06-06] MEDS: predniSONE 1 MG TABLET PO SCH (09:49)
[2021-06-06] MEDS: FERRIC GLUCONATE COMPLEX 125 MG in SODIUM CHLORIDE 0.9% 100 ML IV SCH (09:49)
[2021-06-06] MEDS ORDERED: FUROSEMIDE 40 MG TABLET PO SCH (10:00)
[2021-06-06] MEDS: AZITHROMYCIN INJ 500 MG in SODIUM CHLORIDE 0.9% 250 ML IV SCH (11:09)
[2021-06-06] MEDS: cefTRIAXone 1,000 MG in SODIUM CHLORIDE 0.9% 100 ML IV SCH (12:31)
[2021-06-06 12:37] VITALS: BP 119/61
== END 2021-06-06 16:00 | disposition home health service (06) | DRG 682 ==
LOC: EDBD → EDUNIT# → N.ED 06:19 → N.EDINP 09:42 → SUATTDRO 09:42 → N.3E 18:30
PROVIDERS: ADMIT Internal Medicine; ATTEND Internal Medicine